=== PATIENT | female | born 1950 | race Caucasian/White ===

== ENCOUNTER → 2023-11-30 06:52 | Outpatient (REF) | payer MEDICARE, OTHER, SELFPAY ==
[2023-11-30] VITALS (7 sets, daily range): BP systolic 64–132; BP diastolic 57–81
[2023-11-30 07:25] LABS: % Basophils 2.3 % (0-2); % Eosinophils 3.3 % (0-6); % Immature Granulocytes 0.8 % (0-0.5); % Lymphocytes 36.5 % (20.5-51.1); % Monocytes 11.5 % (1.7-9.3); % Neutrophils 45.6 % (42.2-75.2); Absolute Basophils 0.1 10^3/uL (0-0.2); Absolute Eosinophils 0.2 10^3/uL (0-0.7); Absolute Lymphocytes 1.8 10^3/uL (1.2-3.4); Absolute Monocytes 0.6 10^3/uL (0.1-0.6); Absolute Neutrophils 2.2 10^3/uL (1.4-6.5); Hematocrit 27.1 % (37.0-47.0); Hemoglobin 9.1 g/dL (12.0-16.0); Mean Corp Hgb Conc. 33.6 g/dL (33.0-37.0); Mean Corpuscular Volume 95.4 fL (81.0-99.0); Mean Platelet Volume 12.4 fL (7.4-10.4); Nucleated Red Blood Cells % 0 %; Platelet Count 321 10^3/uL (130-400); Red Blood Cell Count 2.84 10^6/uL (4.20-5.40); Red Cell Dist. Width 21.7 % (11.5-14.5); White Blood Cell Count 4.8 10^3/uL (4.8-10.8)
[2023-11-30 07:31] LABS: INR 1.11; PT 14.1 Sec (11.4-14.6)
[2023-11-30] MEDS: ATIVAN 0.5 MG IV (08:18)
[2023-11-30] MEDS: NSS (PRESERVATIVE FREE) 0.25 ML IV (08:18)
[2023-11-30] MEDS: FLUSH (NSS) 1 FLUSH IV (08:18)
== END ==
LOC: RADI 06:52
PROVIDERS: ATTENDING PHYSICIAN Internal Medicine Hematology & Oncology; FAMILY PHYSICIAN Family Medicine
DX: D64.9 Anemia, unspecified (principal); D68.8 Other specified coagulation defects
CPT/HCPCS: 88305; 88311; 88312; 36415; 38222; 77012; 85025; 85610; 88313

== ENCOUNTER → 2023-12-28 09:03 | Outpatient (REF) | payer MEDICARE, OTHER, SELFPAY | LOC: RAD 09:03 | PROVIDERS: ATTENDING PHYSICIAN Obstetrics & Gynecology; FAMILY PHYSICIAN Family Medicine | DX: Z78.0 Asymptomatic menopausal state (principal) | CPT/HCPCS: 77080 ==

== ENCOUNTER → 2024-01-19 09:10 | Outpatient (REF) | payer MEDICARE, OTHER, SELFPAY ==
[2024-01-19 10:46] LABS: % Basophils 1.7 % (0-2); % Eosinophils 2.9 % (0-6); % Immature Granulocytes 1.2 % (0-0.5); % Lymphocytes 28.5 % (20.5-51.1); % Monocytes 9.3 % (1.7-9.3); % Neutrophils 56.4 % (42.2-75.2); Absolute Basophils 0.1 10^3/uL (0-0.2); Absolute Eosinophils 0.1 10^3/uL (0-0.7); Absolute Immature Granulocytes 0.1 10^3/uL (0-0.05); Absolute Lymphocytes 1.2 10^3/uL (1.2-3.4); Absolute Monocytes 0.4 10^3/uL (0.1-0.6); Absolute Neutrophils 2.4 10^3/uL (1.4-6.5); Hematocrit 24.1 % (37.0-47.0); Hemoglobin 7.9 g/dL (12.0-16.0); Mean Corp Hgb Conc. 32.8 g/dL (33.0-37.0); Mean Corpuscular Hgb 33.8 pg (27.0-31.0); Mean Platelet Volume 12.8 fL (7.4-10.4); Nucleated Red Blood Cells % 0 %; Platelet Count 205 10^3/uL (130-400); Red Blood Cell Count 2.34 10^6/uL (4.20-5.40); White Blood Cell Count 4.2 10^3/uL (4.8-10.8)
[2024-01-19 10:51] LABS: Blood Urea Nitrogen 18 mg/dl (7-17); Iron 80 ug/dl (37-170)
[2024-01-19 11:01] LABS: Percent Saturation 36 % (20-50); Total Iron Binding Capacity 222 ug/dl (265-497)
[2024-01-19 11:27] LABS: Ferritin 98.6 ng/ml (11.1-264.0)
[2024-01-19 13:30] LABS: Anisocytosis 1+; Normal RBC Morphology No
[2024-01-19 13:31] LABS: Hypochromasia 1+; Macrocytosis 1+
== END ==
LOC: REG 09:10
PROVIDERS: ATTENDING PHYSICIAN Internal Medicine Hematology & Oncology; FAMILY PHYSICIAN Family Medicine
DX: C50.419 Malignant neoplasm of upper-outer quadrant of unspecified female breast (principal); R79.9 Abnormal finding of blood chemistry, unspecified; D64.9 Anemia, unspecified; R53.83 Other fatigue; E03.9 Hypothyroidism, unspecified; D53.9 Nutritional anemia, unspecified; L02.213 Cutaneous abscess of chest wall; D46.C Myelodysplastic syndrome with isolated del(5q) chromosomal abnormality
CPT/HCPCS: 36415; 82565; 82728; 83540; 83550; 84520; 85025

== ENCOUNTER 2024-02-17 09:25 | Outpatient (RCR) | payer MEDICARE, OTHER, SELFPAY ==
[2024-02-17] VITALS (8 sets, daily range): BP systolic 97–128; BP diastolic 40–55
[2024-02-17] MEDS: TYLENOL 650 MG PO (10:09)
== END 2024-03-04 23:59 | disposition home or self-care (01) ==
LOC: OID 09:25
PROVIDERS: ATTENDING PHYSICIAN Internal Medicine Hematology & Oncology; FAMILY PHYSICIAN Family Medicine
DX: C50.419 Malignant neoplasm of upper-outer quadrant of unspecified female breast (principal); D46.C Myelodysplastic syndrome with isolated del(5q) chromosomal abnormality; R79.0 Abnormal level of blood mineral
CPT/HCPCS: 36415; 36430; 86850; 86900; 86901; 86920; P9016

== ENCOUNTER → 2024-03-06 09:24 | Outpatient (REF) | payer MEDICARE, OTHER, SELFPAY | LOC: WDC 09:24 | PROVIDERS: ATTENDING PHYSICIAN Family Medicine | DX: N63.12 Unspecified lump in the right breast, upper inner quadrant (principal) | CPT/HCPCS: 76642; 77062; 77066 ==

== ENCOUNTER → 2024-03-09 09:33 | Outpatient (REF) | payer MEDICARE, OTHER, SELFPAY ==
[2024-03-09 10:36] LABS: Hematocrit 25.6 % (37.0-47.0); Mean Corp Hgb Conc. 31.3 g/dL (33.0-37.0); Mean Corpuscular Hgb 34.5 pg (27.0-31.0); Mean Corpuscular Volume 110.3 fL (81.0-99.0); Red Blood Cell Count 2.32 10^6/uL (4.20-5.40); Red Cell Dist. Width 23.7 % (11.5-14.5); White Blood Cell Count 3.1 10^3/uL (4.8-10.8)
[2024-03-09 10:40] LABS: % Basophils 7.6 % (0-2); % Eosinophils 12.4 % (0-6); % Immature Granulocytes 0.3 % (0-0.5); % Lymphocytes 45.2 % (20.5-51.1); % Monocytes 8.3 % (1.7-9.3); % Neutrophils 26.2 % (42.2-75.2); Absolute Basophils 0.2 10^3/uL (0-0.2); Absolute Eosinophils 0.4 10^3/uL (0-0.7); Absolute Lymphocytes 1.4 10^3/uL (1.2-3.4); Absolute Monocytes 0.3 10^3/uL (0.1-0.6); Absolute Neutrophils 0.8 10^3/uL (1.4-6.5); Nucleated Red Blood Cells % 0 %; Platelet Count 120 10^3/uL (130-400)
== END ==
LOC: REG 09:33
PROVIDERS: ATTENDING PHYSICIAN Internal Medicine Hematology & Oncology; FAMILY PHYSICIAN Family Medicine
DX: C50.419 Malignant neoplasm of upper-outer quadrant of unspecified female breast (principal); R79.9 Abnormal finding of blood chemistry, unspecified; D64.9 Anemia, unspecified; R53.83 Other fatigue; E03.9 Hypothyroidism, unspecified; D53.9 Nutritional anemia, unspecified; L02.213 Cutaneous abscess of chest wall; D46.C Myelodysplastic syndrome with isolated del(5q) chromosomal abnormality
CPT/HCPCS: 36415; 85025; 86850; 86860; 86870; 86880; 86900; 86901; 86902; 86920; 86922

== ENCOUNTER → 2024-03-09 15:30 | Outpatient (REF) | payer MEDICARE, OTHER, SELFPAY | LOC: RAD 15:30 | PROVIDERS: ATTENDING PHYSICIAN Nurse Practitioner Adult Health; FAMILY PHYSICIAN Family Medicine | DX: I82.812 Embolism and thrombosis of superficial veins of left lower extremity (principal); R22.42 Localized swelling, mass and lump, left lower limb; C50.419 Malignant neoplasm of upper-outer quadrant of unspecified female breast; R79.9 Abnormal finding of blood chemistry, unspecified; R53.83 Other fatigue; E03.9 Hypothyroidism, unspecified; D53.9 Nutritional anemia, unspecified; L02.213 Cutaneous abscess of chest wall; D46.C Myelodysplastic syndrome with isolated del(5q) chromosomal abnormality; R06.02 Shortness of breath | CPT/HCPCS: 36415; 85025; 93971 ==

== ENCOUNTER 2024-03-13 13:08 | Outpatient (RCR) | payer MEDICARE, OTHER, SELFPAY ==
[2024-03-10] MEDS: TYLENOL 650 MG PO (09:52)
[2024-03-10 09:56] VITALS: BP 127/61
--- NOTE | 2024-03-10 16:29 | PTCARENOTE ---
Pt arrived today for blood transfusion; however, the type and cross that was completed the day before was canceled and not run in the lab. Antibody identified which further delayed care and patient sent home without blood transfusion. New type and
cross sent for planned transfusion on Wednesday. Problem ID placed.
[2024-03-13 13:55] VITALS: BP 124/39
[2024-03-13 14:00] VITALS: BP 124/39
[2024-03-13 14:10] VITALS: BP 124/39
[2024-03-13 14:20] LABS: Blood Urea Nitrogen 14 mg/dl (7-17); Calcium 9.2 mg/dl (8.4-10.2); Carbon Dioxide 29 mmol/L (22-30); Chloride 105 mmol/L (98-107); Glucose 94 mg/dl (70-99); Potassium 3.9 mmol/L (3.5-5.1); Sodium 141 mmol/L (135-145); eGFR > 60.00
[2024-03-13 14:25] VITALS: BP 111/45
[2024-03-13] MEDS: TYLENOL 650 MG PO (14:26)
[2024-03-13 15:00] LABS: Hematocrit 25.2 % (37.0-47.0); Hemoglobin 7.8 g/dL (12.0-16.0); Mean Corpuscular Hgb 34.8 pg (27.0-31.0); Mean Corpuscular Volume 112.5 fL (81.0-99.0); Platelet Count 121 10^3/uL (130-400); Red Blood Cell Count 2.24 10^6/uL (4.20-5.40); Red Cell Dist. Width 22.2 % (11.5-14.5); White Blood Cell Count 2.9 10^3/uL (4.8-10.8)
[2024-03-13 15:01] LABS: Absolute Neutrophils -Man Diff 1.3 10^3/uL (1.4-6.5); Band Neutrophils 3 % (0-3); Eosinophils 12 % (0-6); Lymphocytes 38 % (20-51); Monocytes 3 % (2-9); Platelets Checked Yes; Segmented Neutrophils 43 % (42-75)
[2024-03-13 15:02] LABS: Anisocytosis 1+; Hypochromasia 1+; Normal RBC Morphology No; Ovalocytes 1+; Polychromasia 1+; Total Cells Counted 100
[2024-03-13 16:10] VITALS: BP 109/45
== END 2024-04-04 23:59 | disposition home or self-care (01) ==
LOC: OID 13:08
PROVIDERS: ATTENDING PHYSICIAN Internal Medicine Hematology & Oncology; FAMILY PHYSICIAN Family Medicine
DX: D46.C Myelodysplastic syndrome with isolated del(5q) chromosomal abnormality (principal); C50.419 Malignant neoplasm of upper-outer quadrant of unspecified female breast; R79.0 Abnormal level of blood mineral; Z17.1 Estrogen receptor negative status [ER-]
CPT/HCPCS: 36415; 36430; 80048; 85025; 86850; 86870; 86880; 86900; 86901; 86920; 86922; P9016

== ENCOUNTER → 2024-03-30 14:39 | Outpatient (REF) | payer MEDICARE, OTHER, SELFPAY ==
[2024-03-30 12:20] LABS: % Basophils 1.9 % (0-2); % Eosinophils 6.1 % (0-6); % Lymphocytes 48.1 % (20.5-51.1); % Monocytes 13.6 % (1.7-9.3); % Neutrophils 30.3 % (42.2-75.2); Absolute Basophils 0.1 10^3/uL (0-0.2); Absolute Eosinophils 0.2 10^3/uL (0-0.7); Absolute Lymphocytes 1.3 10^3/uL (1.2-3.4); Absolute Monocytes 0.4 10^3/uL (0.1-0.6); Hematocrit 31.2 % (37.0-47.0); Hemoglobin 9.7 g/dL (12.0-16.0); Mean Corp Hgb Conc. 31.1 g/dL (33.0-37.0); Mean Corpuscular Hgb 36.3 pg (27.0-31.0); Mean Corpuscular Volume 116.9 fL (81.0-99.0); Mean Platelet Volume 13.3 fL (7.4-10.4); Platelet Count 130 10^3/uL (130-400); Red Blood Cell Count 2.67 10^6/uL (4.20-5.40); Red Cell Dist. Width 17.6 % (11.5-14.5); White Blood Cell Count 2.6 10^3/uL (4.8-10.8)
[2024-03-30 12:27] LABS: Absolute Neutrophils 0.8 10^3/uL (1.4-6.5)
== END ==
LOC: OIDL 14:39
PROVIDERS: ATTENDING PHYSICIAN Nurse Practitioner Acute Care
DX: C50.419 Malignant neoplasm of upper-outer quadrant of unspecified female breast (principal)
CPT/HCPCS: 85025

== ENCOUNTER → 2024-05-29 10:21 | Outpatient (REF) | payer MEDICARE, OTHER, SELFPAY | LOC: HWRCS 10:21 | PROVIDERS: ATTENDING PHYSICIAN Internal Medicine Cardiovascular Disease; FAMILY PHYSICIAN Family Medicine | DX: R00.1 Bradycardia, unspecified (principal); R53.83 Other fatigue; R06.09 Other forms of dyspnea | CPT/HCPCS: 93306 ==

== ENCOUNTER 2024-06-02 19:33 | Emergency (ER) | payer MEDICARE, OTHER, SELFPAY ==
[2024-06-02 19:37] VITALS: BP 129/81
[2024-06-02 19:45] VITALS: BP 141/76
[2024-06-02 20:28] LABS: COVID-19 Antigen Negative (Negative)
[2024-06-02 20:38] LABS: NT-proBNP 715 pg/ml
[2024-06-02 20:40] LABS: % Eosinophils 0.5 % (0-6); % Immature Granulocytes 0.5 % (0-0.5); % Lymphocytes 35.6 % (20.5-51.1); % Monocytes 9.2 % (1.7-9.3); % Neutrophils 52.2 % (42.2-75.2); Absolute Basophils 0.1 10^3/uL (0-0.2); Absolute Lymphocytes 1.4 10^3/uL (1.2-3.4); Absolute Monocytes 0.4 10^3/uL (0.1-0.6); Absolute Neutrophils 2.1 10^3/uL (1.4-6.5); Hematocrit 36.7 % (37.0-47.0); Hemoglobin 12.4 g/dL (12.0-16.0); Mean Corp Hgb Conc. 33.8 g/dL (33.0-37.0); Mean Corpuscular Hgb 32.5 pg (27.0-31.0); Mean Corpuscular Volume 96.3 fL (81.0-99.0); Nucleated Red Blood Cells % 0 %; Platelet Count 82 10^3/uL (130-400); Red Blood Cell Count 3.81 10^6/uL (4.20-5.40); Red Cell Dist. Width 14.7 % (11.5-14.5)
[2024-06-02 20:50] LABS: ALT (SGPT) 29 U/L (0-35); AST (SGOT) 28 U/L (14-36); Albumin 4.3 g/dl (3.5-5.0); Alkaline Phosphatase 100 U/L (38-126); Blood Urea Nitrogen 11 mg/dl (7-17); Calcium 9.6 mg/dl (8.4-10.2); Carbon Dioxide 27 mmol/L (22-30); Chloride 100 mmol/L (98-107); Glucose 121 mg/dl (70-99); Potassium 3.2 mmol/L (3.5-5.1); Sodium 138 mmol/L (135-145); eGFR > 60.00
[2024-06-03 00:29] VITALS: BP 116/56
--- NOTE | 2024-06-03 00:34 | ED.GENMED ---
History of Present Illness
General
Chief Complaint: Breathing Problem
Source: patient
Exam Limitations: none
Time Seen by Provider: 06/03/24 00:23
History of Present Illness
History of Present Illness:
This is a 74-year-old female presents with persistent cough. Symptoms began about a week ago. Patient has been on azithromycin by her PCP. Patient denies fevers but states that she just gets into coughing spells. No pleuritic pain. No leg
swelling. No hemoptysis.
Past History
Past History
ED Past Medical History: Cancer (Breast cancer 2007), HTN, Hypothyroidism, Other (Kidney stones, UTI) and Other (HTN, hypothyroid, breast CA, chemotherapy and radiation, kidney stones, B/L elbow fractures.)
ED Past Surgical History: Cholecystectomy, , Urological (Transurethral stone removal, left kidney nephrostomy with removal of stone, many years ago at [facility] and Other (C-sections Kidney surgery Transurethral kidney stone
removal Gallbladder removal Right Breast Lumpectomy )
Social History
Tobacco: Non-smoker
Alcohol: None
Personal:
Living: with family
Employment: Employed ([employer])
Family History
Family History: Hypertension
Phy Exam
Physical Exam
Physical Exam:
CONSTITUTIONAL Patient alert and oriented to person, place and time. Well-appearing. Vital signs reviewed.
HEAD atraumatic, normocephalic.
EYES eyelids normal to inspection, Extraocular muscles intact, Conjunctiva normal, Sclera normal.
NECK normal range of motion, Trachea midline, no jugular venous distention.
RESPIRATORY CHEST No respiratory distress noted, Chest expansion equal, scattered wheezes bilaterally
ABDOMEN No distention.
BACK normal inspection, no obvious deformities
UPPER EXTREMITY range of motion normal, Motor strength normal, no cyanosis, no edema.
LOWER EXTREMITY range of motion normal, Motor strength normal, no cyanosis, no edema.
NEURO Speech normal, No focal motor deficits, Beltran coma scale 15, Memory normal, Cranial Nerves intact to screening exam.
SKIN skin warm, dry, and normal in color.
Scores
Heart Failure Risk
Heart Failure Risk Score: Not Applicable
Sepsis
Sepsis Screening
Sepsis Assessment: Sepsis Ruled Out
Sepsis Screen
Sepsis Screen: Sepsis Ruled Out
Date: 06/03/24
Time: 04:02
Course
Orders/Labs/Results
Orders:
Orders
06/02/24 20:00
COVID-19 Antigen Urgent
Source: Nasal Swab
Complete Blood Count/With Diff Urgent
Comprehensive Metabolic Panel Urgent
Lactic Acid Urgent
NT-proBNP Urgent
Influenza A+B Rapid Molecular Urgent
[place] Source: Nasal Swab
Specimen Description:
06/03/24 00:00
CR Chest - 2 Views Urgent
Reason For Exam: cough
06/03/24 00:33
Ipratropium/Albuterol Sulfate [Duoneb] 3 ml INH R NOW ONE
Ipratropium/Albuterol Sulfate [Duoneb] 3 ml INH R NOW STA
06/03/24 01:33
Ipratropium/Albuterol Sulfate [Duoneb] 3 ml .ROUTE .STK-MED ONE
Prednisone [Deltasone] 50 mg .ROUTE .STK-MED ONE
06/03/24 01:34
Ipratropium/Albuterol Sulfate [Duoneb] 3 ml INH R NOW ONE
Prednisone [Deltasone] 50 mg PO NOW STA
06/03/24 02:16
Albuterol Nebs [Ventolin Nebules] 2.5 mg .ROUTE .STK-MED ONE
06/03/24 02:18
Albuterol Nebs [Ventolin Nebules] 2.5 mg INH R NOW STA
Abnormal Lab Results
06/02/24
20:00
WBC 4.0 L 10^3/uL
(4.8-10.8)
RBC 3.81 L 10^6/uL
(4.20-5.40)
Hct 36.7 L %
(37.0-47.0)
MCH 32.5 H pg
(27.0-31.0)
RDW 14.7 H %
(11.5-14.5)
Plt Count 82 L 10^3/uL
(130-400)
Potassium 3.2 L mmol/L
(3.5-5.1)
Glucose 121 H mg/dl
(70-99)
Total Bilirubin 2.0 H mg/dl
(0.2-1.3)
06/02/24 20:00
06/02/24 20:00
Vital Signs
Initial and Last Documented VS:
Initial Vital Signs
Temp Pulse Resp BP Pulse Ox
98.9 F 121 24 129/81 92
06/02/24 19:37 06/02/24 19:37 06/02/24 19:37 06/02/24 19:37 06/02/24 19:37
Last Documented Vital Signs
Temp Pulse Resp BP Pulse Ox
98.2 F 88 22 124/55 92
06/02/24 19:45 06/03/24 02:12 06/03/24 02:12 06/03/24 02:24 06/03/24 02:00
MDM/Problems Addressed
Differential Diagnosis Includes:
Pneumonia, pneumothorax, heart failure, bronchitis
MDM/Problems Addressed:
Acute bronchitis
*Radiology
Radiology exam reviewed: all reviewed NAD by ED Provider
*Pulse Oximetry
Patient hypoxic: no
*Adult Nurse Practitioner Interpretation
Rate: normal
Interpretation: normal
Rhythm: sinus
*Critical Care Note
Total Time (30-74mins, 75-104mins- exclusive of procedures): Not Applicable
Data Reviewed
Review of Other/Old Records Reveals: Testing (Echocardiogram reviewed from May 29. Ejection fraction 60 to 65%)
Source: patient and spouse
Prescriptions/Medications Considered But Not Given:
Considered antibiotics but already on azithromycin
Patient Management
Escalation/DeEscalation of care consider admission/obs:
Patient feels much better after breathing treatments. Will treat with a course of steroids. Patient will be discharged with a nebulizer machine and albuterol. Okay for outpatient follow-up with PCP
ED Attending Note
-
Portions of this chart may have been created with voice recognition software.� Occasional wrong word or��sound alike� substitutions may have occurred due to the inherent limitations of voice recognition software.
Discharge Plan
Departure
Patient Disposition: Home (Routine Discharge)
Date of Disposition: 06/03/24
Time of Disposition: 02:06
Patient with high blood pressure during this ER visit?: No
Discharge Problem:
RAD (reactive airway disease), Acute bronchitis
Instructions: Acute Bronchitis, Adult (DC)
Prescriptions:
New
prednisone 10 mg Tablet
See Rx Instructions .ROUTE .COMPLEX Qty: 45 0RF
Rx Instructions:
Take By Mouth:
50 mg daily x3 days, 40 mg daily x3 days,
30 mg daily x3 days, 20 mg daily x3 days,
10 mg daily x3 days
albuterol sulfate 1.25 mg/3 mL solution for nebulization
1.25 mg inhalation Q4H PRN (Reason: shortness of breath or wheezing) Qty: 90 0RF
No Action
cholecalciferol (vitamin D3) [Vitamin D3] 400 UNITS tablet
1,000 units PO DAILY
citalopram 20 MG tablet
20 mg PO DAILY
potassium citrate 10 MEQ tablet extended release
10 meq PO BID
levothyroxine 100 MCG tablet
150 mcg PO DAILY
multivitamin with folic acid [Tab-A-Hever] 1 TABLET tablet
1 tab PO DAILY
fluticasone propionate [Flovent HFA] 1 PUFF HFA aerosol inhaler
2 puff inhalation R BID
cyanocobalamin (vitamin B-12) [Vitamin B-12] 100 mcg Tablet
100 mcg PO DIRECTED
meloxicam 7.5 mg Tablet
7.5 mg PO DAILY
albuterol sulfate [ProAir HFA] 90 mcg/actuation Hfa Aerosol Inhaler
2 puff INHALATION QID PRN (Reason: SOB)
zinc
1 tab PO .EVERYOTHERDAY
Eliquis 5 mg Tablet
10 mg PO BID
Elderberry 200 mg Capsule
200 mg PO BID
lenalidomide 10 mg Capsule
10 mg PO DAILY
Referrals:
Kem Lopez, [Family Provider] -
Activity Restrictions/Additional Instructions:
Please see your doctor in the next 3 to 5 days for follow-up and reevaluation. Return immediately for coughing up blood, difficulty breathing, chest pain or any other concerns.
Interventions
Interventions:
*Risk Screen - Suicide Last Done: 06/03/24 00:32
*General Assessment Last Done: 06/02/24 19:45
*Neglect/Abuse Screening Last Done: 06/03/24 00:32
*ED COVID-19 Vaccine History Last Done: 06/03/24 00:32
*Nursing Disposition Last Done: 06/03/24 02:37
ED- Cardiac Assessment Last Done: 06/03/24 00:32
ED- Pulmonary Assessment Last Done: 06/03/24 00:32
Discharge Date and Time
Discharge Date/Time: 06/03/24 02:38
Print Language: MALDIVIAN
[2024-06-03] MEDS: DUONEB 3 ML INH ×3 (00:38→01:34)
[2024-06-03 00:58] VITALS: BMI 36.0
[2024-06-03 01:00] VITALS: BP 107/65
[2024-06-03] MEDS: DELTASONE 50 MG PO (01:34)
[2024-06-03 02:00] VITALS: BP 126/54
[2024-06-03] MEDS: VENTOLIN NEBULES 2.5 MG INH (02:18)
[2024-06-03 02:24] VITALS: BP 124/55
== END 2024-06-03 02:38 | disposition home or self-care (01) ==
LOC: EMR 19:33
PROVIDERS: Student in an Organized Health Care Education/Training Program; EMERGENCY PHYSICIAN Emergency Medicine; FAMILY PHYSICIAN Family Medicine
DX: J20.9 Acute bronchitis, unspecified (principal); J45.909 Unspecified asthma, uncomplicated; Z11.52 Encounter for screening for COVID-19
CPT/HCPCS: 99284; 71046; 80053; 83605; 83880; 85025; 87502; 87811

== ENCOUNTER → 2024-08-08 08:08 | Outpatient (REF) | payer MEDICARE, OTHER, SELFPAY | LOC: WDC 08:08 | PROVIDERS: ATTENDING PHYSICIAN Nurse Practitioner Adult Health; FAMILY PHYSICIAN Family Medicine | DX: R92.8 Other abnormal and inconclusive findings on diagnostic imaging of breast (principal) | CPT/HCPCS: 76642 ==

== ENCOUNTER 2025-01-16 20:39 | Inpatient (IN) | payer MEDICARE, OTHER, SELFPAY ==
[2025-01-16 13:40] VITALS: BP 124/69
[2025-01-16 14:03] VITALS: BP 97/62
--- NOTE | 2025-01-16 14:42 | ED.GENMED ---
History of Present Illness
<Tony Orozco PA-C - Last Filed: 01/16/25 17:24>
General
Chief Complaint: Abnormal Lab Value
Source: patient
Exam Limitations: none
Time Seen by Provider: 01/16/25 14:23
History of Present Illness
History of Present Illness:
74-year-old female on 2-1/2 mg of Eliquis twice a day also has a history of anemia presents after a fall she sustained a week ago. She fell forward onto her porch hitting her face and try to stop her fall with her hands. She notes increasing
swelling and bruising to the face and notes a mild headache. 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 Labs happened and demonstrated hemoglobin was low as well as her platelet count being 13,000. She denies any
dark stool. She denies any chest pain or shortness of breath. She denies any lightheadedness. No other complaints
Past History
<JULIANE Antoine Last Filed: 01/16/25 17:24>
Past History
ED Past Medical History: Cancer (Breast cancer 2007), HTN, Hypothyroidism, Other (Kidney stones, UTI) and Other (HTN, hypothyroid, breast CA, chemotherapy and radiation, kidney stones, B/L elbow fractures.)
ED Past Surgical History: Cholecystectomy, , Urological (Transurethral stone removal, left kidney nephrostomy with removal of stone, many years ago at [facility].) and Other (C-sections Kidney surgery Transurethral kidney stone
removal Gallbladder removal Right Breast Lumpectomy )
Social History
Tobacco: Non-smoker
Alcohol: None
Personal:
Living: with family
Employment: Employed ([employer])
Family History
Family History: Hypertension
Phy Exam
<JULIANE Antoine Last Filed: 01/16/25 17:24>
Physical Exam
Physical Exam:
General: Well-appearing female no acute distress
HEENT normal cephalic ecchymosis or swelling noted over the front of the face centered at the left superior eyebrow pupils equal round reactive to light heart: Regular rate and rhythm lungs: Clear no wheeze
Musculoskeletal exam: Spine is nontender the wrists are mildly diffusely tender dorsally bilaterally
Skin: Abrasions noted to both knees
Course
<Tony Orozco PA-C - Last Filed: 01/16/25 17:24>
Orders/Labs/Results
Orders:
Orders
01/16/25 14:37
CT Cervical Spine W/o Iv Contr Urgent
Comment:
Reason For Exam: fall
CT Facial Bones W/o Iv Contras Urgent
Comment:
Reason For Exam: fall
CR Wrist - Left Min 3 Views Urgent
Comment:
Reason For Exam: fall
CR Wrist - Right Min 3 Views Urgent
Comment:
Reason For Exam: fall
01/16/25 14:38
CT Head W/o Iv Contrast Urgent
Comment:
Reason For Exam: fall
01/16/25 15:10
CBC/With Diff [Complete Blood Count/With Diff] Urgent
CMP [Comprehensive Metabolic Panel] Urgent
Manual Differential Urgent
Abnormal Lab Results
01/16/25
15:10
WBC 2.4 L* 10^3/uL
(4.8-10.8)
RBC 2.71 L 10^6/uL
(4.20-5.40)
Hgb 8.5 L g/dL
(12.0-16.0)
Hct 25.4 L %
(37.0-47.0)
MCH 31.4 H pg
(27.0-31.0)
RDW 15.2 H %
(11.5-14.5)
Plt Count 11 L* 10^3/uL
(130-400)
Abs Neuts (Manual) 0.7 L* 10^3/uL
(1.4-6.5)
Segmented Neutrophils 30 L %
(42-75)
Lymphocytes (Manual) 52 H %
(20-51)
Monocytes (Manual) 18 H %
(2-9)
Glucose 101 H mg/dl
(70-99)
01/16/25 15:10
01/16/25 15:10
Vital Signs
Initial and Last Documented VS:
Initial Vital Signs
Temp Pulse Resp BP Pulse Ox
97.8 F 52 20 124/69 97
01/16/25 13:40 01/16/25 13:40 01/16/25 13:40 01/16/25 13:40 01/16/25 13:40
Last Documented Vital Signs
Temp Pulse Resp BP Pulse Ox
97.8 F 52 20 97/62 96
01/16/25 13:40 01/16/25 13:40 01/16/25 13:40 01/16/25 14:03 01/16/25 16:05
<Yousif Garcia, DO - Last Filed: 01/16/25 17:12>
Orders/Labs/Results
Orders:
Orders
01/16/25 14:37
CT Cervical Spine W/o Iv Contr Urgent
Comment:
Reason For Exam: fall
CT Facial Bones W/o Iv Contras Urgent
Comment:
Reason For Exam: fall
CR Wrist - Left Min 3 Views Urgent
Comment:
Reason For Exam: fall
CR Wrist - Right Min 3 Views Urgent
Comment:
Reason For Exam: fall
01/16/25 14:38
CT Head W/o Iv Contrast Urgent
Comment:
Reason For Exam: fall
01/16/25 15:10
CBC/With Diff [Complete Blood Count/With Diff] Urgent
CMP [Comprehensive Metabolic Panel] Urgent
Manual Differential Urgent
Abnormal Lab Results
01/16/25
15:10
WBC 2.4 L* 10^3/uL
(4.8-10.8)
RBC 2.71 L 10^6/uL
(4.20-5.40)
Hgb 8.5 L g/dL
(12.0-16.0)
Hct 25.4 L %
(37.0-47.0)
MCH 31.4 H pg
(27.0-31.0)
RDW 15.2 H %
(11.5-14.5)
Plt Count 11 L* 10^3/uL
(130-400)
Abs Neuts (Manual) 0.7 L* 10^3/uL
(1.4-6.5)
Segmented Neutrophils 30 L %
(42-75)
Lymphocytes (Manual) 52 H %
(20-51)
Monocytes (Manual) 18 H %
(2-9)
Glucose 101 H mg/dl
(70-99)
01/16/25 15:10
01/16/25 15:10
Vital Signs
Initial and Last Documented VS:
Initial Vital Signs
Temp Pulse Resp BP Pulse Ox
97.8 F 52 20 124/69 97
01/16/25 13:40 01/16/25 13:40 01/16/25 13:40 01/16/25 13:40 01/16/25 13:40
Last Documented Vital Signs
Temp Pulse Resp BP Pulse Ox
97.8 F 52 20 97/62 96
01/16/25 13:40 01/16/25 13:40 01/16/25 13:40 01/16/25 14:03 01/16/25 16:05
<Tony Orozco PA-C - Last Filed: 01/16/25 17:24>
MDM/Problems Addressed
Differential Diagnosis Includes:
Mechanical fall with head strike on [place] 1 week ago but recent outpatient labs demonstrated thrombocytopenia with a count of 13,000. Concern for bleeding. CT of the face head and cervical spine ordered. X-rays of both wrists ordered. Labs
pending
<Tony Orozco PA-C - Last Filed: 01/16/25 17:24>
*Pulse Oximetry
SaO2: 97
Oxygen Mode of Delivery: Room air
Patient hypoxic: no
*Critical Care Note
Total Time (30-74mins, 75-104mins- exclusive of procedures): Not Applicable
<Tony Orozco PA-C - Last Filed: 01/16/25 17:24>
Update Note
Update Note:
CT of the face head and cervical spine shows scalp hematoma but no intracranial hemorrhage or cervical spine fracture. X-rays of the wrist were personally visualized as well and are negative for acute fracture. I discussed with the emergency room
attending as well as oncology, Dr. Armstrong who recommended admission for inpatient bone marrow biopsy as there is concern she may be progressing into leukemia from her MDS.
ED Attending Note
<Tony Orozco PA-C - Last Filed: 01/16/25 17:24>
-
Portions of this chart may have been created with voice recognition software.� Occasional wrong word or��sound alike� substitutions may have occurred due to the inherent limitations of voice recognition software.
<Yousif Garcia DO - Last Filed: 01/16/25 17:12>
ED Attending Note
Patient seen and examined by attending physician: Yes
I performed the substantive portion of visit, reviewed & personally made and approve the management plan that is documented in note by myself or ZAIN.: Yes
ED Attending Note:
I evaluated the patient at bedside. Significant older appearing facial ecchymosis. She is pancytopenic. Hematology has been consulted recommends inpatient bone marrow biopsy as she may be progressing to leukemia.
Discharge Plan
Departure
Patient Disposition: Admit
Date of Disposition: 01/16/25
Time of Disposition: 17:24
Presentation/result/management discussed w/ accepting MD/DO: Hospitalist
Discharge Problem:
Pancytopenia
Prescriptions:
No Action
citalopram 20 MG tablet
10 mg PO BID
potassium citrate 10 MEQ tablet extended release
10 meq PO BID
multivitamin with folic acid [Tab-A-Hever] 1 TABLET tablet
1 tab PO DAILY
Eliquis 5 mg Tablet
2.5 mg PO BID
lenalidomide [Revlimid] 10 mg Capsule
10 mg PO QPM
levothyroxine [Synthroid] 175 mcg Tablet
175 mcg PO DAILY
acetaminophen [Tylenol Extra Strength] 500 mg Tablet
1,000 mg PO Q6HPRN PRN (Reason: mild pain)
cholestyramine 4 gram Powder
4 g PO BID
Referrals:
Kem Lopez DO [Family Provider, Family Practice]
Interventions
Interventions:
*Risk Screen - Suicide Last Done: 01/16/25 13:40
*General Assessment Last Done: 01/16/25 13:40
Discharge Date and Time
Print Language: TURKISH
--- NOTE | 2025-01-16 15:08 | PHANOTE ---
Addendum entered by Mayra De Jesus 01/16/25 15:19:
[facility] [place] does not have patient in system, patient stated she not sure which [facility] her
Original Note:
med re cnote waiting for the [facility] [place] to fax medication list over, to confirm ecw medication. patient answer to question i think so.
[2025-01-16 15:37] LABS: ALT (SGPT) 13 U/L (0-35); AST (SGOT) 16 U/L (14-36); Albumin 3.5 g/dl (3.5-5.0); Alkaline Phosphatase 92 U/L (38-126); Blood Urea Nitrogen 12 mg/dl (7-17); Calcium 9.0 mg/dl (8.4-10.2); Carbon Dioxide 29 mmol/L (22-30); Chloride 106 mmol/L (98-107); Glucose 101 mg/dl (70-99); Potassium 4.0 mmol/L (3.5-5.1); Sodium 136 mmol/L (135-145); Total Protein 7.2 g/dl (6.3-8.2); eGFR > 60.00
[2025-01-16 15:56] LABS: Hematocrit 25.4 % (37.0-47.0); Hemoglobin 8.5 g/dL (12.0-16.0); Mean Corp Hgb Conc. 33.5 g/dL (33.0-37.0); Mean Corpuscular Volume 93.7 fL (81.0-99.0); Platelet Count 11 10^3/uL (130-400); Red Cell Dist. Width 15.2 % (11.5-14.5)
[2025-01-16 16:35] LABS: Normal RBC Morphology Yes; Platelets Checked Yes
[2025-01-16 16:36] LABS: Absolute Neutrophils -Man Diff 0.7 10^3/uL (1.4-6.5); Total Cells Counted 100
--- NOTE | 2025-01-16 18:10 | HPS.HSE ---
Family Physician
-
Family Physician: Kem Lopez
Chief Complaint
-
abnormal out patient labs
History of Present Illness
Patient is a 74-year-old female with past medical history significant for MDS, hypothyroidism and depression who presented to [facility] ED for evaluation of abnormal out patient labs. Patient reports falling a week ago on Wednesday when missing the one
step to go into her home and fell face first into the concrete. Significant facial bruising is still present. She reports telling her daughter about fall today and she requested patient come for evaluation to be sure no bleeding with being on
Eliquis (daughter is INTERNATIONAL EDITORIAL PRODUCER in [place]). She also received a phone call from [facility] requesting her come to ED for admission for in patient bone marrow biopsy based on out patient lab results from yesterday. Patient denies any recent fever, chills,
cough, shortness of breath, chest pain, nausea, vomiting, constipation, diarrhea or urinary symptoms.
Medical History
Past Medical History
Past Medical History: Reports Other
Additional Past Medical History:
MDS
hypothyroidism
depression
Hx breast cancer
Past Surgical History: Reports Other
Additional Past Surgical History:
Kidney Surgery
section
Breast Lumpectomy rt 2006
Chemo and Radiation
Incisional herniorrhaphy with mesh 01/11/2015
Cholecystectomy
Fractured Ankle
rt breast exc. bx 2012 benign
left breast exc bx 2017 benign
tumor removed from head (2010)
colonoscopy 10 years ago
08/26/18 Excision of chronic hemorrhoidal tag dr Perez benign
Social History
Tobacco: Former Smoker (quit 40 years ago )
Alcohol: Occasional (rare)
Drug: None
Personal:
Living: With Family
Employment: Employed
Family History
Family History: Other (Father: CAD; Mother: CAD; Paternal aunt: breast cancer )
Allergies / Home Medications
Allergies reflects when Allergies were last updated in [facility].
Home Medications with original date entered in [facility]
Allergy/Medication List:
Allergies
Allergy/AdvReac Type Severity Reaction Status Date / Time
hydromorphone HCl (From AdvReac bp drops Verified 01/16/25 13:41
Dilaudid)
ondansetron HCl (From Zofran) AdvReac headache Verified 01/16/25 13:41
kenalog injection Allergy headache Uncoded 01/16/25 13:41
Home Medications
citalopram 20 mg tablet 10 mg PO BID Mental Health/Anxiety 05/20/13
potassium citrate 10 mEq (1,080 mg) tablet,extended release 10 meq PO BID Supplement 05/20/13
multivitamin with folic acid 400 mcg tablet (Tab-A-Hever) 1 tab PO DAILY Supplement 03/15/20
apixaban 5 mg tablet (Eliquis) 2.5 mg PO BID afib 03/10/24
lenalidomide 10 mg capsule (Revlimid) 10 mg PO QPM 03/13/24
acetaminophen 500 mg tablet (Tylenol Extra Strength) 1,000 mg PO Q6HPRN PRN mild pain 01/16/25
cholestyramine 4 gram oral powder 4 g PO BID diarrhea 01/16/25
levothyroxine 175 mcg tablet (Synthroid) 175 mcg PO DAILY Thyroid 01/16/25
Review of Systems
-
History Source: Patient
Constitutional: Denies Fever or Chills
EENT: Reports Other (significant bruising to face ); Denies Sore Throat
Respiratory: Denies Cough, Hemoptysis or Trouble Breathing
Cardiac: Denies Chest Pain, Diaphoresis, Palpitations or Syncope
Abdomen/GI: Denies Abdominal Pain, Nausea, Vomiting or Diarrhea
: Denies Dysuria, Frequency or Urgency
Musculoskeletal: Denies Joint Pain
Skin: Denies Rash
Neurological: Denies Dizzy, Headache, Weakness or Numbness
Endocrine: Denies Polyuria
Hematologic/Lymphatic: Denies Bleeding
Physical Exam
Vital Signs
Vital Signs
Temp Pulse Resp BP Pulse Ox
97.8 F 52 20 97/62 96
01/16/25 13:40 01/16/25 13:40 01/16/25 13:40 01/16/25 14:03 01/16/25 16:05
Physical Exam
General: Well Developed, Well Nourished, No Apparent Distress, Comfortable, Conversant and Obese
HEENT: NormoCephalic, Moist mucous membranes, PERRLA, Nose Appears Normal, Ears Appear Normal and Other (significant facial bruising )
Respiratory: Clear and Non Labored Respirations; No Wheezes, Rales, Rhonchi or Crackles
Cardiac: S1/S2 and Regular Rhythm; No Murmur, Rub or Gallop
GI: Soft, Non Tender, Non Distended and Normal Bowel Sounds
Musculoskeletal: No Clubbing, No Cyanosis and No Edema
Skin: Warm and IV/Catheter Site
Neuro: Awake and AO x 3
Hematologic/Lymphatic: No Lymphadenopathy
Psych: Calm and Intact Judgment/Insight
Laboratory Results
-
01/16/25 15:10
01/16/25 15:10
Laboratory Results
Total Bilirubin 0.7 mg/dl (0.2-1.3) 01/16/25 15:10
AST 16 U/L (14-36) 01/16/25 15:10
ALT 13 U/L (0-35) 01/16/25 15:10
Alkaline Phosphatase 92 U/L (38-126) 01/16/25 15:10
Data Reviewed
-
Diagnostic Radiology: Report Reviewed by me (r wrist: 1. Acute nondisplaced fracture of the dorsal cortex of the triquetrum with mild overlying soft tissue swelling. 2. 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 3. 2.6 mm
negative ulnar variance.; l wrist: No radiographic evidence for acute fracture in the left wrist. )
CT Scan: Report Reviewed by me
Lab Data: Labs Reviewed by me (WBC 2.4, hgb 8.5, hct 25.4, plt 11)
Impression/Plan
-
IMPRESSION/PLAN:
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
WBC 2.4, hgb 8.5, hct 25.4, plt 11
- Admit to med/surg
- Consult Hematology/Oncology
- hold Eliquis, Last dose 01/16/2025 AM
- blood consent obtained and scanned to chart
#MDS
- Hold Eliquis (last dose 01/16/2025 AM) and Revlimid (last dose 01/15/2025 PM)
#mechanical fall
#right wrist fracture
C-spine CT: 1. 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
2. Mild spinal cord compression and central canal stenosis at C3/C4, C4/C5, C5/C6, and C6/C7.
3. Severe bilateral neural foraminal narrowing at C4/C5 and C5/C6.
4. Severe left neural foraminal narrowing at C6/C7.
HEAD CT: 1. 2.1 cm ACUTE SCALP SOFT TISSUE HEMATOMA anterior to the left frontal bone.
2. No CT evidence for acute intracranial hemorrhage or calvarial fracture.
3. 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
4. Mild encephalomalacia in the peripheral right cerebellar hemisphere.
5. Mild periventricular white matter leukoaraiosis.
FACIAL BONES CT: 1. No CT evidence for acute facial bone fracture.
2. Moderate to severe calcific atherosclerotic plaque in the left carotid bifurcation and proximal left ICA.
Left wrist x-ray: No radiographic evidence for acute fracture in the left wrist.
Right wrist x-ray: 1. Acute nondisplaced fracture of the dorsal cortex of the triquetrum with mild overlying soft tissue swelling.
2. 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
3. 2.6 mm negative ulnar variance.
- Consult Orthopedics
- splinted in ED
#hypothyroidism
- continue levothyroxine
#depression
- continue citalopram
Code status: full code
DVT prophylaxis: SCDs
--- NOTE | 2025-01-16 19:42 | W.PN.UPDATE ---
Update Note
Progress Note Update
This note serves as an addendum to the H&P by tax audit manager ZAIN�
Niyah Orozco
HPI
74M Former smoker, HX MDS (Revlimid and Eliquis ) hypothyroidism and depression seen at ER:
- for evaluation of abnormal out patient labs - [facility] sent her in for admission for BM Biospy
- Mechanical Fall on Wednesday when missing the one step - fell face first into the concrete.
- with significant facial bruising is still present.
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
ROS:
denies any recent fever, chills, cough, shortness of breath, chest pain, nausea, vomiting, constipation, diarrhea or urinary symptoms.
Relevant VS
Temp Pulse Resp BP Pulse Ox
97.8 F 52 20 97/62 96
01/16/25 13:40 01/16/25 13:40 01/16/25 13:40 01/16/25 14:03 01/16/25 16:05
PE
General: Obese , NAD , interactive
HEENT: significant facial bruising
Resp: CTA
Cardiac: S1/S2 and RRR
GI: Soft, Non Tender, Non Distended
MS: No Edema
Neuro: Awake and AO x 3
Psych: Calm and Intact Judgment/Insight
Relevant data�
06/02/24 01/16/25
20:00 15:10
WBC 4.0 L 2.4 L*
Hgb 12.4 8.5 L
Plt Count 82 L 11 L*
Abs Neuts (Manual) 0.7 L*
Segmented Neutrophils 30 L
Band Neutrophils 0
Lymphocytes (Manual) 52 H
Monocytes (Manual) 18 H
C-spine CT:
1. 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
2. Mild spinal cord compression and central canal stenosis at C3/C4, C4/C5, C5/C6, and C6/C7.
3. Severe bilateral neural foraminal narrowing at C4/C5 and C5/C6.
4. Severe left neural foraminal narrowing at C6/C7.
HEAD CT:
1. 2.1 cm ACUTE SCALP SOFT TISSUE HEMATOMA anterior to the left frontal bone.
2. No CT evidence for acute intracranial hemorrhage or calvarial fracture.
3. 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
4. Mild encephalomalacia in the peripheral right cerebellar hemisphere.
5. Mild periventricular white matter leukoaraiosis.
FACIAL BONES CT:
1. No CT evidence for acute facial bone fracture.
2. Moderate to severe calcific atherosclerotic plaque in the left carotid bifurcation and proximal left ICA.
Left wrist x-ray: No radiographic evidence for acute fracture in the left wrist.
Right wrist x-ray:
1. Acute nondisplaced fracture of the dorsal cortex of the triquetrum with mild overlying soft tissue swelling.
2. 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
3. 2.6 mm negative ulnar variance.
NO PRIOR Last hospitalist admission:
ASSESSMENT & PLAN
Worsening pancytopenia: severe thrombocytopenia
New segmented Neutrophils, Lymphocytosis and monocytosis concerning Leukemic transformation
HX MDS
- Hold Eliquis
- For BM Biopsy
- T & S, Blood consented and scanned at ER
- Oncology consulted
HX MDS
- Hold Eliquis and Revlimid
Right wrist acute nondisplaced fracture of the dorsal cortex of the triquetrum
Recent fall with significant facial bruises
- wrist splint
- Ortho consult
Hypothyroidism
- on LT4
Depression
- c/w citalopram
DVT Px: SCD
Full code
IP MS
[2025-01-16 21:24] VITALS: BP 114/47; BMI 34.9
[2025-01-16] MEDS: CELEXA PO (22:05)
--- NOTE | 2025-01-16 22:47 | PTCARENOTE ---
Pt received from ED via stretcher. Ambulated to bed w/supervision. AAOx3, pleasant. Oriented to surroundings and plan of care discussed. Admission and physical assessment completed. Periorbital and facial cchymosis present. Pt received w/brace
to L wrist, contacted admitting provided via TT for clarification as to which wrist brace should be on. COAL MILL OPERATOR confirmed that brace should be applied to R wrist. Explained to pt and pt agreeable to move wrist to R. Instructed ro ring for assist
when getting OOB, pt verbalizes understanding. Boxed lunch provided. Call sultana w/in reach.
[2025-01-16] MEDS: UROCIT-K 10 MEQ PO (22:52)
[2025-01-16 23:20] VITALS: PULSE 89
[2025-01-17] VITALS (10 sets, daily range): BP systolic 111–121; BP diastolic 46–63; BMI 34.9
--- NOTE | 2025-01-17 00:30 | PTCARENOTE ---
TT to RT that patient cannot tolerate CPAP mask.
[2025-01-17] MEDS: TYLENOL 650 MG PO (01:31)
[2025-01-17] MEDS: SYNTHROID 175 MCG PO (07:26)
[2025-01-17 07:32] LABS: Hematocrit 22.9 % (37.0-47.0); Hemoglobin 7.6 g/dL (12.0-16.0); Mean Corp Hgb Conc. 33.2 g/dL (33.0-37.0); Mean Corpuscular Volume 95.8 fL (81.0-99.0); Platelet Count 9 10^3/uL (130-400); Red Cell Dist. Width 15.2 % (11.5-14.5)
[2025-01-17 07:43] LABS: Blood Urea Nitrogen 11 mg/dl (7-17); Calcium 8.7 mg/dl (8.4-10.2); Carbon Dioxide 26 mmol/L (22-30); Chloride 108 mmol/L (98-107); Estimated Creatinine Clearance 100 ml/min; Glucose 88 mg/dl (70-99); Potassium 3.4 mmol/L (3.5-5.1); Sodium 138 mmol/L (135-145); eGFR > 60.00
--- NOTE | 2025-01-17 08:10 | CON.ORTHO ---
Consultation
-
Date/Time Consultation Requested: 01/16/2025; time unknown
Date/Time Consultation Performed: 01/17/2025; 0700
Requesting Provider: unknown
Performing Provider: Shanta Waters PA-C for Dr. Maxwell Lema
Reason for Consultation: Right wrist triquetrum fracture
Consultation - Orthopedics
History
Ms. Nielsen is a 74 year old female with PMH of MDS, hypothyroidism and depression seen today for her right wrist. She reports she sustained a fall about one week ago, and her daughter requested she been seen to rule out any abnormal bleeding due to
being on Eliquis. She also presented at the request of [facility] due to abnormal outpatient labs. She reports her right wrist has been tender since the fall. She localizes pain primarily to the dorsal aspect of her hand. She also endorses some pain
along the radial aspect of her left thumb and wrist. She otherwise denies pain elsewhere.
Allergies / Home Medications
Allergy/AdvReac Type Severity Reaction Status Date / Time
hydromorphone HCl (From AdvReac bp drops Verified 01/16/25 13:41
Dilaudid)
ondansetron HCl (From Zofran) AdvReac headache Verified 01/16/25 13:41
kenalog injection Allergy headache Uncoded 01/16/25 13:41
�Medication �Instructions �Recorded
citalopram 20 mg tablet 20 mg PO DAILY Mental 05/20/13
Health/Anxiety
potassium citrate 10 mEq (1,080 10 meq PO BID Supplement 05/20/13
mg) tablet,extended release
multivitamin with folic acid 400 1 tab PO DAILY Supplement 03/15/20
mcg tablet (Tab-A-Hever)
apixaban 5 mg tablet (Eliquis) 2.5 mg PO BID afib 03/10/24
lenalidomide 10 mg capsule 10 mg PO QPM Autoimmune Disorder 03/13/24
(Revlimid)
acetaminophen 500 mg tablet 1,000 mg PO Q6HPRN PRN mild pain 01/16/25
(Tylenol Extra Strength)
cholestyramine 4 gram oral powder 4 g PO BID diarrhea 01/16/25
levothyroxine 175 mcg tablet 175 mcg PO DAILY Thyroid 01/16/25
(Synthroid)
Vital Signs / Lab Results
Temp Pulse Resp BP Pulse Ox
97.9 F 67 18 111/63 95
01/17/25 07:24 01/17/25 07:24 01/17/25 07:24 01/17/25 07:24 01/17/25 07:24
01/17/25 06:27
01/17/25 06:27
XR Right Wrist IMPRESSION:
1. Acute nondisplaced fracture of the dorsal cortex of the triquetrum with mild overlying soft tissue swelling.
2. 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
3. 2.6 mm negative ulnar variance.
XR of left wrist unremarkable.
Directed exam of the right upper extremity reveals mild edema about the dorsal aspect of the hand. No significant erythema, ecchymosis or lesions. Tenderness to palpation over the triquetrum and DRUJ. Patient able to make composite fist and fully
extend fingers. Mild discomfort with wrist ROM. Sensation intact to light touch. Capillary refill <2 seconds.
Directed exam of the left hand reveals no obvious erythema, ecchymosis, edema or lesions. No significant tenderness throughout the hand. Patient able to make composite fist and fully extend fingers. Maintained wrist ROM. NVID.
Assessment / Plan
Nondisplaced fracture of right triquetrum
--Claudia's x-rays were reviewed with her today which reveal a nondisplaced fracture of her triquetrum. This can be managed without surgical intervention. She will continue with immobilization and soft tissue rest in her wrist brace. She will
utilize this at all times other than for showering. She should limit weight bearing to her right upper extremity where possible. I recommended ice, elevation and OTC medications for symptom management. We will see her back in the office in 2 weeks
for repeat evaluation and new x-rays. Orthopedics will sign off for now. Please reach out with any additional orthopedic questions or concerns.
[2025-01-17] MEDS: CELEXA 10 MG PO ×2 (08:54→21:48)
[2025-01-17] MEDS: UROCIT-K 10 MEQ PO ×2 (08:55→21:48)
[2025-01-17] MEDS: THERAGRAN 1 TABLET PO (08:55)
[2025-01-17] MEDS: QUESTRAN 4 GRAM PO ×2 (09:45→21:48)
--- NOTE | 2025-01-17 10:47 | W.PN.HOSP.TC ---
Today's Communication/Plan
-
2 units Platelets for plt<10
monitor CBC closely
Heme following for possible BM biopsy
Ortho saw pt, no acute surgical intervention
Assessment / Plan
Assessment / Plan
74F with history of triple negative breast cancer s/p chemo and surgery, MDS 5 q-on lenalidomide with panytopenia on labs.
Severe thrombocytopenia
Pancytopenia
MDS with New segmented Neutrophils, Lymphocytosis and monocytosis concerning Leukemic transformation
- Hold Eliquis
- For BM Biopsy inpatient
Transfuse PRBC if Hgb < 7
Transfuse platelet if plt < 10 or any bleeding
- Oncology consulted, appreciate recommendation. Likely chemo once leukemia has been identified.
MDS 5q-
- Hold Eliquis and Revlimid
Right wrist acute nondisplaced fracture
of the dorsal cortex of the triquetrum
Recent fall with significant facial bruises
- wrist splint
- Ortho consult, recommend nonoperative management with ice elevation and pain medicine
Hypothyroidism
Synthroid
Depression
- c/w citalopram
DVT Px: SCD
Full code
Anticipated Discharge: > 48 hours
Subjective/Interval History
-
Date of Service: January 17, 2025
Feels well. Chronic diarrhea due to lenalidomide, nonbloody. Briefly had ROMAN last night, resolved. No blurred vision, bruising on her face from fall is unchanged. No bleeding or new bruising. No CP, SOB, n/v/abd pain, f/c. No hematuria.
Objective Data
-
Labs:
Laboratory Results
01/17/25
06:27
WBC 2.1 L*
Hgb 7.6 L
Hct 22.9 L
Plt Count 9 L*
Sodium 138
Potassium 3.4 L
Chloride 108 H
Carbon Dioxide 26
BUN 11
Creatinine 0.6
Glucose 88
Calcium 8.7
Vital Signs:
Vital Signs
Temp Pulse Resp BP Pulse Ox
98.2 F 69 16 121/48 95
01/17/25 10:19 01/17/25 10:19 01/17/25 10:19 01/17/25 10:19 01/17/25 07:24
I&O
01/16/25 01/17/25 01/18/25
06:59 06:59 06:59
Intake Total 0 / 0
Balance 0 / 0
Review of Systems
-
All other systems: Reviewed and negative
Physical Exam
-
General: No Apparent Distress
HEENT: Moist Mucous Membranes, Anicteric and PERRLA
Respiratory: Clear to Auscultation; Negative Wheezes, Rales or Rhonchi
Cardiac: Regular Rhythm, S1/S2 and Murmur; Negative Rub or Gallop
GI: Soft, Nontender, Nondistended and Normal Bowel Sounds
Musculoskeletal: No Edema and Other (R arm in splint)
Skin: Warm, Dry and Other (bruising on face); Negative Rash or Ulcers
Neuro: Awake and AO x 3
Hematologic / Lymphatic: No Lymphadenopathy
Psych: Calm
Data Reviewed
-
CT Scan: Report Reviewed by me and Discussed with Patient
Labs: Labs Reviewed by me, Discussed with Physician and Discussed with Patient
--- NOTE | 2025-01-17 12:35 | CON.ONC ---
Consultation
-
Date Consultation Requested: 01/16/25
Date Consultation Performed: 01/17/25
Requesting Provider: KAYE Orozco
Performing Provider: Dr. Dom Ham and Dr. Art Curry
Reason for Consultation: acute thromboctypenia/ abnormal outpatient results
Impression
Impression
#5q- Myelodysplastic syndrome
#Blasts on peripheral blood smear
Plan
Plan
- 74-year-old female with a past medical history of 5q-myelodysplastic syndrome and remote triple negative breast cancer (treated with adjuvant chemotherapy in 2010) presenting with acute drop in platelet count in a span of a month (from 122 --> 13
--> 9) and increasing peripheral blasts (3%).
- Inpatient peripheral smear shows 18% monocytes and 52% lymphocytes.
- There is concern for progression of MDS to leukemia. Will place inpatient bone biopsy order, approved by SENIOR LANDSCAPE ARCHITECT. Will await bone marrow biopsy results for diagnostic confirmation.
- Will order flow cytometry.
- No active bleeding, received 2 unit platelets today. Monitor for response (trend CBC). Further transfusions may increase alloimmunization risk.
- HOLD ELIQUIS
- Patient follows with Dr. Capone at [facility].
Patient History
History of Present Illness
Patient is a 74-year-old female with past medical history of myelodysplastic syndrome (on Revlimid since 02/01/24), hypothyroidism and triple negative breast cancer who presented to the ED for abnormal labs. Patient was instructed by [facility] to go
to the ED for an inpatient bone marrow biopsy based on results from 01/15/2025 which showed platelet count of 13, absolute blasts 94, blast 3%. Patient expresses that she has been fatigued for the past 2 weeks, and had a fall 1 week ago. She has
extensive bruising to her face that she landed on concrete face down. Patient did not get evaluated at the time of the fall. Patient denies fever, chills, and abdominal pain, or any other symptoms. Patient follows with Dr. Capone at
[facility].
Past-Medical/Surgical History
Triple negative breast cancer treated with adjuvant AC-T in 2010
5q-myelodysplastic syndrome
Depression
Hypothyroidism
Patient Medication
�Medication �Instructions �Recorded �Confirmed �Last Taken �Type
citalopram 20 mg tablet 20 mg PO DAILY Mental 05/20/13 01/17/25 01/16/25 History
Health/Anxiety
potassium citrate 10 mEq (1,080 10 meq PO BID Supplement 05/20/13 01/16/25 01/16/25 History
mg) tablet,extended release
multivitamin with folic acid 400 1 tab PO DAILY Supplement 03/15/20 01/16/25 03/13/24 History
mcg tablet (Tab-A-Hever)
apixaban 5 mg tablet (Eliquis) 2.5 mg PO BID afib 03/10/24 01/16/25 01/16/25 History
lenalidomide 10 mg capsule 10 mg PO QPM Autoimmune Disorder 03/13/24 01/16/25 01/15/25 History
(Revlimid)
acetaminophen 500 mg tablet 1,000 mg PO Q6HPRN PRN mild pain 01/16/25 01/16/25 01/15/25 History
(Tylenol Extra Strength)
cholestyramine 4 gram oral powder 4 g PO BID diarrhea 01/16/25 01/16/25 01/16/25 History
levothyroxine 175 mcg tablet 175 mcg PO DAILY Thyroid 01/16/25 01/16/25 01/16/25 History
(Synthroid)
Active Medications
Generic Name Dose Route Start Last Admin
Trade Name Freq PRN Reason Stop Dose Admin
Acetaminophen 650 mg 01/16/25 21:03 01/17/25 01:31
Acetaminophen 325 Mg Tablet PO 02/13/25 21:02 650 mg
Q4HPRN PRN Administration
mild pain/ROMAN/temp> 100.4F
Cholestyramine Resin 4 gram 10/15/25 10:00 01/17/25 09:45
Cholestyramine 4 Gram Packet PO 02/14/25 09:59 4 gram
BID@1000,2200 KARTHIKEYAN Administration
Citalopram Hydrobromide 10 mg 01/16/25 21:03 01/17/25 08:54
Citalopram 20 Mg Tablet PO 02/13/25 21:02 10 mg
BID KARTHIKEYAN Administration
Levothyroxine Sodium 175 mcg 01/17/25 06:00 01/17/25 07:26
Levothyroxine 175 Mcg Tablet PO 02/14/25 05:59 175 mcg
DAILY @ 0600 KARTHIKEYAN Administration
Multivitamins Therapeutic 1 tablet 01/17/25 08:00 01/17/25 08:55
Multivitamin Tablet PO 02/14/25 07:59 1 tablet
DAILY KARTHIKEYAN Administration
Potassium Citrate 10 meq 01/16/25 21:03 01/17/25 08:55
Potassium Citrate 10 Meq Tablet PO 02/13/25 21:02 10 meq
BID KARTHIKEYAN Administration
Sodium Chloride 0 flush 01/16/25 22:00
Sodium Chloride 0.9% (Flush) Syringe IV 02/13/25 21:59
PER PROTOCOL KARTHIKEYAN
Review of Systems
-
History Source: Patient
All Other Systems: Reviewed and Negative
Constitutional: Reports Fatigue
EENT: Reports No Symptoms
Respiratory: Reports No Symptoms
Cardiac: Reports No Symptoms
GI: Reports No Symptoms
Breast: Reports No Symptoms
: Reports No Symptoms
Neuro: Reports No Symptoms
Endocrine: Reports No Symptoms
Hematologic/Lymphatic: Reports Bruising
Psych: Reports No Symptoms
Physical Exam
-
General: Well Developed, Well Nourished, No Apparent Distress, Comfortable and Conversant
HEENT: Moist Mucous Membranes
Cardiology: Normal Sinus Rhythm, S1 and S2
Pulmonary: Clear
GI: Soft and Normal Bowel Sounds
Musculoskeletal: No Clubbing, No Cyanosis and No Edema
Skin: Warm
Psych: Calm
Labs
Lab Results
WBC 2.1 10^3/uL (4.8-10.8) L* 01/17/25 06:27
RBC 2.39 10^6/uL (4.20-5.40) L 01/17/25 06:27
Hgb 7.6 g/dL (12.0-16.0) L 01/17/25 06:27
Hct 22.9 % (37.0-47.0) L 01/17/25 06:27
MCV 95.8 fL (81.0-99.0) 01/17/25 06:27
MCH 31.8 pg (27.0-31.0) H 01/17/25 06:27
MCHC 33.2 g/dL (33.0-37.0) 01/17/25 06:27
RDW 15.2 % (11.5-14.5) H 01/17/25 06:27
Plt Count 9 10^3/uL (130-400) L* 01/17/25 06:27
MPV Not Reportable 01/17/25 06:27
Creatinine 0.6 mg/dL (0.6-1.0) 01/17/25 06:27
Vital Signs
Vital Signs
Temp Pulse Resp BP Pulse Ox
98.1 F 67 16 113/46 99
01/17/25 12:15 01/17/25 12:15 01/17/25 12:15 01/17/25 12:15 01/17/25 11:54
--- NOTE | 2025-01-17 13:10 | CM ---
CM following re: discharge planning.
Reviewed pt's chart, met with pt.
Pt is a 74 year old female, admitted with primary dx of Nondisplaced fracture of right triquetrum. PMH: MDS, hypothyroidism and depression.
Pt reports she lives with in a rancher house, 1 step to enter, has 2 supportive children. 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 No DME, VN or SNF history.
PT and OT will evaluate the pt to determine a level of care at discharge.
PCP: Kem brumfield
pharmacy: [facility]
D/C plan: home with anticipated no needs. to transport at discharge.
CM will follow with discharge plan updates as hospitalization progresses
[2025-01-18] MEDS: SYNTHROID 175 MCG PO (05:46)
[2025-01-18 05:52] VITALS: BMI 35.1
[2025-01-18 06:33] LABS: INR 1.22; PT 15.9 Sec (11.4-14.6)
[2025-01-18 06:36] LABS: Hematocrit 24.8 % (37.0-47.0); Hemoglobin 8.0 g/dL (12.0-16.0); Mean Corp Hgb Conc. 32.3 g/dL (33.0-37.0); Mean Corpuscular Volume 95.8 fL (81.0-99.0); Platelet Count 16 10^3/uL (130-400); Red Cell Dist. Width 15.0 % (11.5-14.5)
[2025-01-18 06:55] LABS: ALT (SGPT) 12 U/L (0-35); AST (SGOT) 16 U/L (14-36); Albumin 3.4 g/dl (3.5-5.0); Alkaline Phosphatase 74 U/L (38-126); Blood Urea Nitrogen 9 mg/dl (7-17); Calcium 8.9 mg/dl (8.4-10.2); Carbon Dioxide 28 mmol/L (22-30); Chloride 108 mmol/L (98-107); Estimated Creatinine Clearance 101 ml/min; Glucose 87 mg/dl (70-99); Potassium 3.7 mmol/L (3.5-5.1); Sodium 139 mmol/L (135-145); Total Protein 7.1 g/dl (6.3-8.2); eGFR > 60.00
[2025-01-18 07:10] VITALS: BP 122/55
[2025-01-18 07:29] LABS: Anisocytosis Slight; Normal RBC Morphology No; Ovalocytes Slight; Platelets Checked Yes; Total Cells Counted 100
[2025-01-18 07:30] LABS: Absolute Neutrophils -Man Diff 0.7 10^3/uL (1.4-6.5)
--- NOTE | 2025-01-18 08:15 | W.PN.HOSP.TC ---
Today's Communication/Plan
-
BM biopsy today
Assessment / Plan
Assessment / Plan
74F with history of triple negative breast cancer s/p chemo and surgery, MDS 5 q-on lenalidomide with panytopenia on labs.
Severe thrombocytopenia
Pancytopenia
MDS with New segmented Neutrophils, Lymphocytosis and monocytosis concerning Leukemic transformation
- Hold Eliquis
- For BM Biopsy inpatient today
Transfuse PRBC if Hgb < 7
Transfuse platelet if plt < 10 or any bleeding. 2 units plt given 01/17 for plt 9. Improved to 16
- Oncology consulted, appreciate recommendation. Likely chemo once leukemia has been identified.
MDS 5q-
- Hold Eliquis and Revlimid
Right wrist acute nondisplaced fracture
of the dorsal cortex of the triquetrum
Recent fall with significant facial bruises
- wrist splint
- Ortho consult, recommend nonoperative management with ice elevation and pain medicine
Hypothyroidism
Synthroid
Depression
- c/w citalopram
DVT Px: SCD, Eliquis on hold
Full code
Anticipated Discharge: > 48 hours
Subjective/Interval History
-
Date of Service: January 18, 2025
Patient states she slept well, denies bleeding or new bruising, denies headache or chest pain.
Objective Data
-
Labs:
Laboratory Results
01/18/25
05:55
WBC 2.2 L*
Hgb 8.0 L
Hct 24.8 L
Plt Count 16 L* D
PT 15.9 H
INR 1.22
Sodium 139
Potassium 3.7
Chloride 108 H
Carbon Dioxide 28
BUN 9
Creatinine 0.6
Glucose 87
Calcium 8.9
Total Bilirubin 0.7
AST 16
ALT 12
Alkaline Phosphatase 74
Vital Signs:
Vital Signs
Temp Pulse Resp BP Pulse Ox
99.0 F 77 18 116/56 98
01/17/25 23:24 01/17/25 23:24 01/17/25 23:24 01/17/25 23:24 01/17/25 23:24
I&O
01/17/25 01/18/25 01/19/25
06:59 06:59 06:59
Intake Total 1973
Balance 1973
Review of Systems
-
All other systems: Reviewed and negative
Physical Exam
-
General: No Apparent Distress
HEENT: Moist Mucous Membranes, Anicteric and PERRLA
Respiratory: Clear to Auscultation; Negative Wheezes, Rales or Rhonchi
Cardiac: Regular Rhythm, S1/S2 and Murmur; Negative Rub or Gallop
GI: Soft, Nontender, Nondistended and Normal Bowel Sounds
Musculoskeletal: No Edema and Other (R arm in splint)
Skin: Warm, Dry and Other (bruising on face); Negative Rash or Ulcers
Neuro: Awake and AO x 3
Hematologic / Lymphatic: No Lymphadenopathy
Psych: Calm
Data Reviewed
-
CT Scan: Report Reviewed by me and Discussed with Patient
Labs: Labs Reviewed by me, Discussed with Physician and Discussed with Patient
[2025-01-18] MEDS: CELEXA 10 MG PO ×2 (08:48→20:32)
[2025-01-18] MEDS: UROCIT-K 10 MEQ PO ×2 (08:48→20:32)
[2025-01-18] MEDS: THERAGRAN 1 TABLET PO (08:49)
--- NOTE | 2025-01-18 09:45 | W.PN.ONC2 ---
Today's Communication / Plan
-
Inpatient bone marrow biopsy today
Trend CBC
Impression
Impression
#5q- Myelodysplastic syndrome
#Blasts on peripheral blood smear
Plan
Plan
- 74-year-old female with a past medical history of 5q-myelodysplastic syndrome and remote triple negative breast cancer (treated with adjuvant chemotherapy in 2010) presenting with acute drop in platelet count in a span of a month (from 122 --> 9)
and increasing peripheral blasts (3%).
- Inpatient peripheral smear shows 18% monocytes and 52% lymphocytes.
- There is concern for progression of MDS to leukemia. Patient to get inpatient bone marrow biopsy today.
- Flow cytometry ordered
- s/p 2 units platelets 01/17/25. Plt count today 16. Trend CBC. Further transfusions may increase alloimmunization risk.
- Hgb 8.0. Trend CBC.
- Eliquis on hold.
- Patient follows with Dr. Capone at [facility].
Subjective/Objective
Subjective
Upon evaluation of patient today, patient feels well. No new symptoms.
Vital Signs:
Vital Signs
Temp Pulse Resp BP Pulse Ox
98.7 F 68 16 122/55 95
01/18/25 07:10 01/18/25 07:10 01/18/25 07:10 01/18/25 07:10 01/18/25 07:10
Lab Results:
Laboratory Data
WBC 2.2 10^3/uL (4.8-10.8) L* 01/18/25 05:55
Hgb 8.0 g/dL (12.0-16.0) L 01/18/25 05:55
Plt Count 16 10^3/uL (130-400) L* D 01/18/25 05:55
PT 15.9 Sec (11.4-14.6) H 01/18/25 05:55
INR 1.22 01/18/25 05:55
eGFR > 60.00 01/18/25 05:55
Physical Exam
HEENT: Moist Mucous Membranes
Cardiology: Normal Sinus Rhythm, S1 and S2
Pulmonary: Clear
GI: Soft and Normal Bowel Sounds
Orders
Orders
Orders From Last 24 Hours
01/17/25 12:39
[facility] CONSULT Routine
01/17/25 13:18
Leukemia/Lymphoma Phenotyping [S] Routine
[2025-01-18] MEDS: QUESTRAN 4 GRAM PO ×2 (10:02→21:39)
[2025-01-18] MEDS: ATIVAN 0.5 MG PO (11:31)
[2025-01-18 11:35] VITALS: BP 124/53; BP_SYST 54
[2025-01-18 12:47] VITALS: BP 112/62
--- NOTE | 2025-01-18 13:10 | PTCARENOTE ---
Patient arrived from [facility] after bone marrow biopsy. VS documented. no s/s of distress notes. Dressing to r lower back C/D/I.
[2025-01-18 15:20] VITALS: BP 120/53
--- NOTE | 2025-01-18 16:14 | CM ---
CM following re: discharge planning.
Reviewed pt's chart, met with pt.
Per chart review, BM biopsy today, continue supportive care.
Pt lives with in a rancher house, 1 step to enter, has 2 supportive children. 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 No DME, VN or SNF history.
PT and OT will evaluate the pt to determine a level of care at discharge.
D/C plan: home with anticipated no needs. to transport at discharge.
CM will follow with discharge plan updates as hospitalization progresses
[2025-01-18 19:04] LABS: Hepatitis C Antibody Negative (Negative)
[2025-01-18 23:12] VITALS: BP 129/44
[2025-01-19] MEDS: SYNTHROID 175 MCG PO (05:59)
[2025-01-19 07:46] VITALS: BP 116/47
[2025-01-19] MEDS: THERAGRAN 1 TABLET PO (08:29)
[2025-01-19] MEDS: UROCIT-K 10 MEQ PO ×2 (08:29→20:43)
[2025-01-19] MEDS: CELEXA 10 MG PO ×2 (08:29→20:43)
[2025-01-19 09:27] LABS: Hematocrit 23.2 % (37.0-47.0); Hemoglobin 8.0 g/dL (12.0-16.0); Mean Corp Hgb Conc. 34.5 g/dL (33.0-37.0); Mean Corpuscular Volume 91.7 fL (81.0-99.0); Red Cell Dist. Width 15.1 % (11.5-14.5)
[2025-01-19] MEDS: QUESTRAN 4 GRAM PO (09:34)
[2025-01-19 09:47] LABS: AST (SGOT) 16 U/L (14-36); Albumin 3.4 g/dl (3.5-5.0); Blood Urea Nitrogen 11 mg/dl (7-17); Carbon Dioxide 25 mmol/L (22-30); Chloride 109 mmol/L (98-107); Estimated Creatinine Clearance 101 ml/min; Total Protein 7.2 g/dl (6.3-8.2); eGFR > 60.00
[2025-01-19 09:57] LABS: ALT (SGPT) 13 U/L (0-35); Alkaline Phosphatase 74 U/L (38-126); Calcium 8.9 mg/dl (8.4-10.2); Glucose 101 mg/dl (70-99); Potassium 3.8 mmol/L (3.5-5.1); Sodium 139 mmol/L (135-145)
[2025-01-19 11:16] LABS: Total Cells Counted 100
[2025-01-19 11:17] LABS: Anisocytosis Slight; Normal RBC Morphology No; Platelets Checked Yes
[2025-01-19 11:18] LABS: Ovalocytes Slight
[2025-01-19 11:20] LABS: Absolute Neutrophils -Man Diff 0.6 10^3/uL (1.4-6.5); Platelet Count 13 10^3/uL (130-400)
--- NOTE | 2025-01-19 12:24 | W.PN.HOSP.TC ---
Today's Communication/Plan
-
f/u heme/onc recs- biopsy result pending, 1 unit platelets
ok to d/c after that
Assessment / Plan
Assessment / Plan
74F with history of triple negative breast cancer s/p chemo and surgery, MDS 5 q-on lenalidomide with panytopenia on labs.
Severe thrombocytopenia
Pancytopenia
MDS with New segmented Neutrophils, Lymphocytosis and monocytosis concerning Leukemic transformation
- Hold Eliquis until plt>50,000
- s/p BM Biopsy inpatient path pending
Transfuse PRBC if Hgb < 7
Transfuse platelet if plt < 10 or any bleeding. 2 units plt given 01/17 for plt 9. Improved to 16, then back down to 13
- Oncology consulted, appreciate recommendation. Likely chemo once leukemia has been identified.
D/w Onc ENVELOPE MAKER Andreina, will transfuse another unit of platelets today
MDS 5q-
- Hold Eliquis and Revlimid
Right wrist acute nondisplaced fracture
of the dorsal cortex of the triquetrum
Recent fall with significant facial bruises
- wrist splint
- Ortho consult, recommend nonoperative management with ice elevation and pain medicine
Hypothyroidism
Synthroid
Depression
- c/w citalopram
DVT Px: SCD, Eliquis on hold for plt<50K
Full code
Anticipated Discharge: > 48 hours
Subjective/Interval History
-
Date of Service: January 19, 2025
Pt feeling well denies issues overnight, no bleeding/bruising, no ROMAN/CP/SOB
Objective Data
-
Labs:
Laboratory Results
01/19/25
08:54
WBC 2.5 L
Hgb 8.0 L
Hct 23.2 L
Plt Count 13 L*
Sodium 139
Potassium 3.8
Chloride 109 H
Carbon Dioxide 25
BUN 11
Creatinine 0.6
Glucose 101 H
Calcium 8.9
Total Bilirubin 0.9
AST 16
ALT 13
Alkaline Phosphatase 74
Vital Signs:
Vital Signs
Temp Pulse Resp BP Pulse Ox
98.4 F 53 16 116/47 94
01/19/25 07:46 01/19/25 07:46 01/19/25 07:46 01/19/25 07:46 01/19/25 07:46
I&O
01/18/25 01/19/25 01/20/25
06:59 06:59 06:59
Intake Total 1973 900 / 900
Balance 1973 900 / 900
Review of Systems
-
All other systems: Reviewed and negative
Physical Exam
-
General: No Apparent Distress
HEENT: Moist Mucous Membranes, Anicteric and PERRLA
Respiratory: Clear to Auscultation; Negative Wheezes, Rales or Rhonchi
Cardiac: Regular Rhythm, S1/S2 and Murmur; Negative Rub or Gallop
GI: Soft, Nontender, Nondistended and Normal Bowel Sounds
Musculoskeletal: No Edema and Other (R arm in splint)
Skin: Warm, Dry and Other (bruising on face); Negative Rash or Ulcers
Neuro: Awake and AO x 3
Hematologic / Lymphatic: No Lymphadenopathy
Psych: Calm
Data Reviewed
-
CT Scan: Report Reviewed by me and Discussed with Patient
Labs: Labs Reviewed by me, Discussed with Physician and Discussed with Patient
--- NOTE | 2025-01-19 13:18 | CM ---
CM following re: discharge planning.
Reviewed pt's chart, met with pt.
Pt lives with in a rancher house, 1 step to enter, has 2 supportive children. Pt described herself as independent in all areas [employer]. No DME, VN or SNF history.
PT and OT will evaluate the pt to determine a level of care at discharge.
D/C plan: home with anticipated no needs. to transport at discharge.
CM will follow with discharge plan updates as hospitalization progresses
[2025-01-19 14:57] VITALS: BP 126/46
--- NOTE | 2025-01-19 14:59 | W.PN.ONC2 ---
Today's Communication / Plan
-
Platelet transfusion today
Awaiting BM biopsy results
Follow up outpatient with Dr. Thompson at [facility]
Hematology-oncology team OK with discharge.
Impression
Impression
#5q- Myelodysplastic syndrome
#Blasts on peripheral blood smear
Plan
Plan
- 74-year-old female with a past medical history of 5q-myelodysplastic syndrome and remote triple negative breast cancer (treated with adjuvant chemotherapy in 2010) presenting with acute drop in platelet count in a span of a month (from 122 --> 9)
and increasing peripheral blasts (3%).
- Inpatient peripheral smear shows 18% monocytes and 52% lymphocytes.
- Concern for progression of MDS to leukemia. Inpatient bone marrow biopsy done- awaiting results.
- Flow cytometry ordered.
- s/p 2 units platelets 01/17/25. Plt count today 13, recommend another platelet transfusion today. Patient requesting 2 units before discharge, but informed patient risk of alloimmunization increases with repeated transfusions.
- Hgb 8.0, has been stable over past few days.
- Recommend outpatient follow up with Dr. Capone at [facility].
Subjective/Objective
Subjective
Upon evaluation of patient today, no new complaints. Patient feels well.
Vital Signs:
Vital Signs
Temp Pulse Resp BP Pulse Ox
99.4 F 58 18 126/46 98
01/19/25 14:57 01/19/25 14:57 01/19/25 14:57 01/19/25 14:57 01/19/25 14:57
Lab Results:
Laboratory Data
WBC 2.5 10^3/uL (4.8-10.8) L 01/19/25 08:54
Hgb 8.0 g/dL (12.0-16.0) L 01/19/25 08:54
Plt Count 13 10^3/uL (130-400) L* 01/19/25 08:54
PT 15.9 Sec (11.4-14.6) H 01/18/25 05:55
INR 1.22 01/18/25 05:55
eGFR > 60.00 01/19/25 08:54
Physical Exam
HEENT: Moist Mucous Membranes
Cardiology: Normal Sinus Rhythm, S1 and S2
Pulmonary: Clear
GI: Soft and Normal Bowel Sounds
[2025-01-19 16:01] LABS: Source Blood
[2025-01-19 16:35] VITALS: BP 146/84
[2025-01-19 16:51] VITALS: BP 134/46
[2025-01-19 18:11] VITALS: BP 144/59
--- NOTE | 2025-01-19 18:17 | PTCARENOTE ---
1 unit platelets transfused through L upper arm peripheral IV, unit verified with second RN Fred. CAGLE throughout transfusion, patient stating no complaints at this time.
[2025-01-19] MEDS: QUESTRAN PO (20:45)
[2025-01-19] MEDS: TYLENOL 650 MG PO (22:20)
[2025-01-19 23:06] VITALS: BP 122/51
[2025-01-20] MEDS: SYNTHROID 175 MCG PO (06:06)
[2025-01-20 07:18] LABS: Hematocrit 21.5 % (37.0-47.0); Hemoglobin 7.4 g/dL (12.0-16.0); Mean Corp Hgb Conc. 34.4 g/dL (33.0-37.0); Mean Corpuscular Volume 94.3 fL (81.0-99.0); Platelet Count 10 10^3/uL (130-400); Red Cell Dist. Width 14.8 % (11.5-14.5)
[2025-01-20 07:28] LABS: ALT (SGPT) 15 U/L (0-35); AST (SGOT) 17 U/L (14-36); Albumin 3.2 g/dl (3.5-5.0); Alkaline Phosphatase 69 U/L (38-126); Blood Urea Nitrogen 13 mg/dl (7-17); Calcium 8.8 mg/dl (8.4-10.2); Carbon Dioxide 27 mmol/L (22-30); Chloride 111 mmol/L (98-107); Estimated Creatinine Clearance 101 ml/min; Glucose 99 mg/dl (70-99); Potassium 3.3 mmol/L (3.5-5.1); Sodium 142 mmol/L (135-145); Total Protein 6.6 g/dl (6.3-8.2); eGFR > 60.00
[2025-01-20 07:37] VITALS: BP 131/60
[2025-01-20 07:54] LABS: Anisocytosis Slight; Normal RBC Morphology No; Ovalocytes Slight; Platelets Checked Yes; Total Cells Counted 100
[2025-01-20 07:55] LABS: Absolute Neutrophils -Man Diff 0.6 10^3/uL (1.4-6.5)
--- NOTE | 2025-01-20 08:14 | W.PN.HOSP.TC ---
Today's Communication/Plan
-
fever 100.9F o/n, bcx pending, UA pending
plt down to 10 after transfusion
Assessment / Plan
Assessment / Plan
74F with history of triple negative breast cancer s/p chemo and surgery, MDS 5 q-on lenalidomide with panytopenia on labs.
Neutropenic fever
one fever to 100.9F with resolution
neutropenic
check blood cultures, UA w/reflex cx
have d/w oncology they rec holding off empiric abx, they suspect fever is secondary to last night's platelet transfusion
Severe thrombocytopenia
Pancytopenia
MDS with New segmented Neutrophils, Lymphocytosis and monocytosis concerning Leukemic transformation
- Hold Eliquis until plt>50,000
- s/p BM Biopsy inpatient path pending
Transfuse PRBC if Hgb < 7
Transfuse platelet if plt < 10 or any bleeding. 2 units plt given 01/17 for plt 9. Improved to 16, then back down to 13. Was given 1 unit Plt again, but dropped to 10. Monitor repeat tomorrow
- Oncology consulted, appreciate recommendation. Likely chemo once leukemia has been identified.
outpt f/u
MDS 5q-
- Hold Eliquis and Revlimid
Right wrist acute nondisplaced fracture
of the dorsal cortex of the triquetrum
Recent fall with significant facial bruises
- wrist splint
- Ortho consult, recommend nonoperative management with ice elevation and pain medicine
Hypothyroidism
Synthroid
Depression
- c/w citalopram
DVT Px: SCD, Eliquis on hold for plt<50K
Full code
Anticipated Discharge: > 48 hours
Subjective/Interval History
-
Date of Service: January 20, 2025
Patient denies any new bleeding or bruising, denies sore throat, nausea/vomiting, abdominal pain, diarrhea, runny nose, cough, dysuria. Discussed plan with patient's daughter by phone.
Objective Data
-
Labs:
Laboratory Results
01/20/25
06:17
WBC 2.1 L*
Hgb 7.4 L
Hct 21.5 L
Plt Count 10 L* D
Sodium 142
Potassium 3.3 L
Chloride 111 H
Carbon Dioxide 27
BUN 13
Creatinine 0.6
Glucose 99
Calcium 8.8
Total Bilirubin 0.5
AST 17
ALT 15
Alkaline Phosphatase 69
Vital Signs:
Vital Signs
Temp Pulse Resp BP Pulse Ox
97.9 F 59 18 131/60 97
01/20/25 07:37 01/20/25 07:37 01/20/25 07:37 01/20/25 07:37 01/20/25 07:37
I&O
01/19/25 01/20/25 01/21/25
06:59 06:59 06:59
Intake Total 900 / 900 1482 / 1482
Balance 900 / 900 1482 / 1482
Review of Systems
-
All other systems: Reviewed and negative
Physical Exam
-
General: No Apparent Distress
HEENT: Moist Mucous Membranes, Anicteric and PERRLA
Respiratory: Clear to Auscultation; Negative Wheezes, Rales or Rhonchi
Cardiac: Regular Rhythm, S1/S2 and Murmur; Negative Rub or Gallop
GI: Soft, Nontender, Nondistended and Normal Bowel Sounds
Musculoskeletal: No Edema and Other (R arm in splint)
Skin: Warm, Dry and Other (bruising on face); Negative Rash or Ulcers
Neuro: Awake and AO x 3
Hematologic / Lymphatic: No Lymphadenopathy
Psych: Calm
Data Reviewed
-
CT Scan: Report Reviewed by me and Discussed with Patient
Labs: Labs Reviewed by me, Discussed with Physician and Discussed with Patient
[2025-01-20] MEDS: UROCIT-K 10 MEQ PO ×2 (08:30→20:01)
[2025-01-20] MEDS: THERAGRAN 1 TABLET PO (08:30)
[2025-01-20] MEDS: CELEXA 10 MG PO ×2 (08:30→20:01)
[2025-01-20] MEDS: QUESTRAN PO (11:37)
--- NOTE | 2025-01-20 12:27 | VATNOTE ---
Phlebitic area to left AC improved since yesterday but not resolved, warm compress applied
--- NOTE | 2025-01-20 14:21 | PTCARENOTE ---
Addendum entered by Judy Marie RN 01/20/25 19:30:
1 unit platelets transfused, VSS throughout transfusion - see documentation. Patient states no further episodes of vaginal bleeding since first episode earlier in afternoon. Heme/onc aware of hgb 7.4 on AM labs, stated okay for next lab draw
tomorrow AM.
Original Note:
MD made aware of AM labs and temp of 100.9F overnight, blood cx x2 and urine sample ordered per MD. Patient ringing this afternoon stating to this RN she is having 'vaginal bleeding,' denies any urinary symptoms of burning/pain with urination,
states urine is clear yellow but c/o having blood when wiping. MD and heme/onc made aware by this RN, 1 unit platelets ordered per heme/onc.
[2025-01-20 15:54] VITALS: BP 125/50
[2025-01-20 16:51] VITALS: BP 125/50
[2025-01-20 17:13] VITALS: BP 134/54
[2025-01-20 17:57] VITALS: BP 135/48
[2025-01-20 20:26] LABS: Urine Character Slightly Cloudy (Clear)
[2025-01-20 20:34] LABS: Urine Squamous Cell 0-2 /LPF (Few)
[2025-01-20 20:35] LABS: Urine Red Blood Cell 0-2 /HPF (0-2); Urine White Cell >100 /HPF (0-5)
[2025-01-20] MEDS: QUESTRAN 4 GRAM PO (21:12)
[2025-01-20 22:31] VITALS: BP 136/54
--- NOTE | 2025-01-21 06:13 | W.PN.ONC2 ---
Today's Communication / Plan
-
Await CBC. Anticipate discharge today or tomorrow as vaginal bleeding was minor (and seems to have resolved) and counts won't likely improve until we know final diagnosis and start Tx.
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
Awaiting post PLT transfusion CBC.
Close ACS follow up with Dr. Thompson post discharge.
Impression
Impression
#5q- Myelodysplastic syndrome
#Blasts on peripheral blood smear
Plan
Plan
- 74-year-old female with a past medical history of 5q-myelodysplastic syndrome and remote triple negative breast cancer (treated with adjuvant chemotherapy in 2010) presenting with acute drop in platelet count in a span of a month (from 122 --> 9)
and increasing peripheral blasts (3% on smear w/ 18% monocytes and 52% lymphocytes). F/U peripheral blood flow cytometry 16% blasts. 16% blasts very concerning for AML transformation.
- Awaiting inpatient bone marrow biopsy done pathology results.
- Recommend outpatient follow up with Dr. Capone at [facility].
Subjective/Objective
Chief Complaint
[facility]
Subjective
Vaginal bleeding yesterday (small amount) resolved now. S/P PLT transfusion for PLT = 10K w bleeding.
Vital Signs:
Vital Signs
Temp Pulse Resp BP Pulse Ox
98 F 64 18 136/54 98
01/20/25 22:31 01/20/25 22:31 01/20/25 22:31 01/20/25 22:31 01/20/25 22:31
Lab Results:
Laboratory Data
WBC 2.1 10^3/uL (4.8-10.8) L* 01/20/25 06:17
Hgb 7.4 g/dL (12.0-16.0) L 01/20/25 06:17
Plt Count 10 10^3/uL (130-400) L* D 01/20/25 06:17
PT 15.9 Sec (11.4-14.6) H 01/18/25 05:55
INR 1.22 01/18/25 05:55
eGFR > 60.00 01/20/25 06:17
Physical Exam
Cardiology: S1 and S2
Pulmonary: Clear
GI: Soft
Neuro: Non Focal
Orders
Orders
Orders From Last 24 Hours
01/20/25 14:15
Blood Bank Products [* Blood Bank Products] Routine
[2025-01-21] MEDS: SYNTHROID 175 MCG PO (06:20)
[2025-01-21 07:08] VITALS: BP 127/69
[2025-01-21 07:12] LABS: Hematocrit 21.4 % (37.0-47.0); Hemoglobin 7.4 g/dL (12.0-16.0); Mean Corp Hgb Conc. 34.6 g/dL (33.0-37.0); Mean Corpuscular Volume 93.9 fL (81.0-99.0); Platelet Count 13 10^3/uL (130-400); Red Cell Dist. Width 14.7 % (11.5-14.5)
[2025-01-21 07:30] LABS: AST (SGOT) 15 U/L (14-36); Albumin 3.2 g/dl (3.5-5.0); Blood Urea Nitrogen 9 mg/dl (7-17); Calcium 8.8 mg/dl (8.4-10.2); Carbon Dioxide 27 mmol/L (22-30); Chloride 110 mmol/L (98-107); Estimated Creatinine Clearance 101 ml/min; Glucose 95 mg/dl (70-99); Total Protein 6.8 g/dl (6.3-8.2); eGFR > 60.00
[2025-01-21 07:33] LABS: ALT (SGPT) 13 U/L (0-35); Alkaline Phosphatase 68 U/L (38-126); Potassium 3.5 mmol/L (3.5-5.1); Sodium 141 mmol/L (135-145)
--- NOTE | 2025-01-21 07:52 | W.PN.HOSP.TC ---
Today's Communication/Plan
-
UA positive for UTI, start ceftriaxone, f/u cx and change to oral pending c/s
plt improved to 13
Assessment / Plan
Assessment / Plan
74F with history of triple negative breast cancer s/p chemo and surgery, MDS 5 q-on lenalidomide with panytopenia on labs.
UTI/Neutropenic fever
one fever to 100.9F with resolution
neutropenic
UA positive for UTI, start empiric IV ceftriaxone
f/u blood cultures, Ucx - still pending. ok to change to oral once cx returns
Severe thrombocytopenia
Pancytopenia
MDS with New segmented Neutrophils, Lymphocytosis and monocytosis concerning Leukemic transformation
- Hold Eliquis until plt>50,000
- s/p BM Biopsy inpatient path pending
Transfuse PRBC if Hgb < 7
Transfuse platelet if plt < 10 or any bleeding. 2 units plt given 01/17 for plt 9. Improved to 16, then back down to 13. Was given 1 unit Plt again, but dropped to 10. Repeat today improved to 13.
- Oncology consulted, appreciate recommendation. Likely chemo once leukemia has been identified.
outpt f/u
MDS 5q-
- Hold Eliquis and Revlimid
Right wrist acute nondisplaced fracture
of the dorsal cortex of the triquetrum
Recent fall with significant facial bruises
- wrist splint
- Ortho consult, recommend nonoperative management with ice elevation and pain medicine
outpt f/u
Hypothyroidism
Synthroid
Depression
- c/w citalopram
DVT Px: SCD, Eliquis on hold for plt<50K
Full code
Anticipated Discharge: Within 24 hours
Subjective/Interval History
-
Date of Service: January 21, 2025
Pt had episode of vaginal bleeding yesterday x1, no further bleeding. No other symptoms.
Objective Data
-
Labs:
Laboratory Results
01/21/25
06:32
WBC 2.4 L*
Hgb 7.4 L
Hct 21.4 L
Plt Count 13 L* D
Sodium 141
Potassium 3.5
Chloride 110 H
Carbon Dioxide 27
BUN 9
Creatinine 0.5 L
Glucose 95
Calcium 8.8
Total Bilirubin 0.9
AST 15
ALT 13
Alkaline Phosphatase 68
Vital Signs:
Vital Signs
Temp Pulse Resp BP Pulse Ox
98.3 F 77 18 127/69 96
01/21/25 07:08 01/21/25 07:08 01/21/25 07:08 01/21/25 07:08 01/21/25 07:08
I&O
01/20/25 01/21/25 01/22/25
06:59 06:59 06:59
Intake Total 1482 / 1482 3550 / 3550
Balance 1482 / 1482 3550 / 3550
Review of Systems
-
All other systems: Reviewed and negative
Physical Exam
-
General: No Apparent Distress
HEENT: Moist Mucous Membranes, Anicteric and PERRLA
Respiratory: Clear to Auscultation; Negative Wheezes, Rales or Rhonchi
Cardiac: Regular Rhythm, S1/S2 and Murmur; Negative Rub or Gallop
GI: Soft, Nontender, Nondistended and Normal Bowel Sounds
Musculoskeletal: No Edema and Other (R arm in splint)
Skin: Warm, Dry and Other (bruising on face); Negative Rash or Ulcers
Neuro: Awake and AO x 3
Hematologic / Lymphatic: No Lymphadenopathy
Psych: Calm
Data Reviewed
-
CT Scan: Report Reviewed by me and Discussed with Patient
Labs: Labs Reviewed by me, Discussed with Physician, Discussed with Patient and Discussed with Family
[2025-01-21] MEDS: CELEXA 10 MG PO ×2 (09:19→20:42)
[2025-01-21] MEDS: ROCEPHIN 1000 MG IV (09:19)
[2025-01-21] MEDS: THERAGRAN 1 TABLET PO (09:19)
[2025-01-21] MEDS: UROCIT-K 10 MEQ PO (09:19)
[2025-01-21] MEDS: STERILE WATER FOR INJECTION 10 ML IV (09:20)
[2025-01-21] MEDS: QUESTRAN 4 GRAM PO ×2 (11:07→21:39)
[2025-01-21 12:14] LABS: Platelets Checked YES
[2025-01-21 12:15] LABS: Normal RBC Morphology No
[2025-01-21 12:16] LABS: Hypochromasia 1+
[2025-01-21 12:22] LABS: Absolute Neutrophils -Man Diff 0.5 10^3/uL (1.4-6.5)
[2025-01-21 12:23] LABS: Total Cells Counted 100
--- NOTE | 2025-01-21 14:54 | VATNOTE ---
Yesterday noted two episodes of phlebitis within <24h period. PIV replaced, recommended CHG bath daily. Today, PIV remains without s/s of phlebitis. Other two sites improving, palpable cord remains from AC midway up upper arm, localized erythema
nearly resolved.
[2025-01-21 15:59] VITALS: BP 123/47
[2025-01-21] MEDS: UROCIT-K PO (20:47)
[2025-01-21 23:15] VITALS: BP 131/53
[2025-01-22] VITALS (8 sets, daily range): BP systolic 115–135; BP diastolic 45–82
[2025-01-22] MEDS: SYNTHROID 175 MCG PO (05:15)
[2025-01-22 08:18] LABS: Hematocrit 20.3 % (37.0-47.0); Hemoglobin 6.7 g/dL (12.0-16.0); Mean Corp Hgb Conc. 33.0 g/dL (33.0-37.0); Mean Corpuscular Volume 98.1 fL (81.0-99.0); Platelet Count 8 10^3/uL (130-400); Red Cell Dist. Width 14.9 % (11.5-14.5)
--- NOTE | 2025-01-22 08:22 | W.PN.ONC2 ---
Today's Communication / Plan
-
transfuse Hgb <7, platelets <10, CMV negative products, neutropenic precautions, follow for marrow path
Start Promacta 50mg daily to help reduce need for platelet transfusion
check iron studies, b12, folate, hemolysis panel
Dr. Robles discussed case with transfer center, Dr. Parks and OP provider Dr. Maharaj with plan to continue to monitor counts IP and transfer if unable to meet transfusion needs as OP to consider transfer for IP therapy at [place]
Daughter, Moira, was on speaker phone during visit provided updates and questions answered
Impression
Impression
5q- Myelodysplastic syndrome, lenalidomide on hold since 01/15. peripheral flow 16% blasts and 8% LGL population. BMBx flow with 3.3% blasts
pancytopenia
neutropenic fever 100.9F on 01/19- Bcx NTD, urinc culure pending
Plan
Plan
74-year-old female with a past medical history of 5q-myelodysplastic syndrome and remote triple negative breast cancer (treated with adjuvant chemotherapy in 2010) presenting with acute drop in platelet count in a span of a month 122 --> 9
Awaiting inpatient bone marrow biopsy done pathology results. peripheral flow 16% blasts and 8% LGL population. BMBx flow with 3.3% blasts
start promacta 50mg daily, monitor LFTs while on promacta
DOAC on hold
empiric abx per primary service
Subjective/Objective
Subjective
afebrile, no hypoxia or hypotension
Vital Signs:
Vital Signs
Temp Pulse Resp BP Pulse Ox
98.5 F 59 18 130/80 96
01/22/25 07:27 01/22/25 07:27 01/22/25 07:27 01/22/25 07:27 01/22/25 07:27
Lab Results:
Laboratory Data
WBC 1.8 10^3/uL (4.8-10.8) L* 01/22/25 06:47
Hgb 6.7 g/dL (12.0-16.0) L* 01/22/25 06:47
Plt Count 8 10^3/uL (130-400) L* D 01/22/25 06:47
PT 15.9 Sec (11.4-14.6) H 01/18/25 05:55
INR 1.22 01/18/25 05:55
eGFR > 60.00 01/21/25 06:32
Physical Exam
HEENT: Moist Mucous Membranes; No Jaundice
Pulmonary: Other (unlabored)
GI: Soft
Extremities: Pulses Present
Neuro: Non Focal
[2025-01-22 08:49] LABS: ALT (SGPT) 14 U/L (0-35); AST (SGOT) 16 U/L (14-36); Albumin 3.0 g/dl (3.5-5.0); Alkaline Phosphatase 65 U/L (38-126); Blood Urea Nitrogen 9 mg/dl (7-17); Calcium 8.7 mg/dl (8.4-10.2); Carbon Dioxide 27 mmol/L (22-30); Chloride 110 mmol/L (98-107); Estimated Creatinine Clearance 101 ml/min; Glucose 92 mg/dl (70-99); Potassium 3.5 mmol/L (3.5-5.1); Sodium 139 mmol/L (135-145); Total Protein 6.6 g/dl (6.3-8.2); eGFR > 60.00
[2025-01-22 08:59] LABS: Anisocytosis Slight; Hypochromasia 1+; Normal RBC Morphology No; Ovalocytes Slight; Platelets Checked Yes; Total Cells Counted 100
[2025-01-22 09:00] LABS: Absolute Neutrophils -Man Diff 0.5 10^3/uL (1.4-6.5)
[2025-01-22] MEDS: CELEXA 10 MG PO ×2 (09:08→20:10)
[2025-01-22] MEDS: THERAGRAN 1 TABLET PO (09:08)
[2025-01-22] MEDS: STERILE WATER FOR INJECTION 10 ML IV (09:09)
[2025-01-22] MEDS: ROCEPHIN 1000 MG IV (09:10)
[2025-01-22] MEDS: UROCIT-K PO ×2 (09:49→20:10)
[2025-01-22] MEDS: QUESTRAN 4 GRAM PO ×2 (11:15→22:44)
--- NOTE | 2025-01-22 11:30 | W.PN.HOSP.TC ---
Today's Communication/Plan
-
Monitor vital signs see plan
Transfuse PRBC and platelets today
Repeat labs later today
Continue with ceftriaxone
Follow urine culture
Discussed with daughter over the phone
Assessment / Plan
Assessment / Plan
74F with history of triple negative breast cancer s/p chemo and surgery, MDS 5 q-on lenalidomide with panytopenia on labs.
UTI/Neutropenic fever
one fever to 100.9F with resolution
neutropenic
UA positive for UTI, ucx with ecoli. Pending sensitivities. cw empiric IV ceftriaxone
f/u blood cultures NGTD
Severe thrombocytopenia
Pancytopenia
MDS with New segmented Neutrophils, Lymphocytosis and monocytosis concerning Leukemic transformation
- Hold Eliquis until plt>50,000
- s/p BM Biopsy inpatient path pending
Transfuse PRBC if Hgb < 7; transfuse 1 unit 10/20
Transfuse platelet if plt < 10 or any bleeding. 2 units plt given 10/15 for plt 9. Improved to 16, then back down to 13. Was given 1 unit Plt again, but dropped to 10. plt 8 10/20; 1 unit 10/20
- Oncology consulted, appreciate recommendation. Likely chemo once leukemia has been identified.
outpt f/u
MDS 5q-
- Hold Eliquis and Revlimid
Right wrist acute nondisplaced fracture
of the dorsal cortex of the triquetrum
Recent fall with significant facial bruises
- wrist splint
- Ortho consult, recommend nonoperative management with ice elevation and pain medicine
outpt f/u
Hypothyroidism
Synthroid
Depression
- c/w citalopram
DVT Px: SCD, Eliquis on hold for plt<50K
Full code
General: No Apparent Distress
HEENT: Moist Mucous Membranes, Anicteric and PERRLA
Respiratory: Clear to Auscultation; Negative Wheezes, Rales or Rhonchi
Cardiac: Regular Rhythm, S1/S2 and Murmur; Negative Rub or Gallop
GI: Soft, Nontender, Nondistended and Normal Bowel Sounds
Musculoskeletal: No Edema and Other (R arm in splint)
Skin: Warm, Dry and Other (bruising on face)
Neuro: Awake and AO x 3
Psych: Calm
I spent a total of 53 minutes with the patient or on the floor. More than 50% of this time involved counseling and coordination of care.
Anticipated Discharge: Within 24 hours
Subjective/Interval History
-
Date of Service: January 22, 2025
denies pain
Objective Data
-
Labs:
Laboratory Results
01/22/25
06:47
WBC 1.8 L*
Hgb 6.7 L*
Hct 20.3 L*
Plt Count 8 L* D
Sodium 139
Potassium 3.5
Chloride 110 H
Carbon Dioxide 27
BUN 9
Creatinine 0.5 L
Glucose 92
Calcium 8.7
Total Bilirubin 1.0
AST 16
ALT 14
Alkaline Phosphatase 65
Vital Signs:
Vital Signs
Temp Pulse Resp BP Pulse Ox
98.6 F 67 14 116/48 97
01/22/25 10:28 01/22/25 10:28 01/22/25 10:28 01/22/25 10:28 01/22/25 10:28
I&O
01/21/25 01/22/25 01/23/25
06:59 06:59 06:59
Intake Total 3550 / 3550 2820 / 2820 276 / 276
Balance 3550 / 3550 2820 / 2820 276 / 276
[2025-01-22 12:48] LABS: Reticulocyte Count 0.3 % (0.4-2.8)
[2025-01-22 13:12] LABS: Iron 105 ug/dl (37-170); LDH 228 U/L (120-246)
[2025-01-22 13:22] LABS: Total Iron Binding Capacity 199 ug/dl (265-497)
[2025-01-22 14:05] LABS: Ferritin 324.0 ng/ml (11.1-264.0)
--- NOTE | 2025-01-22 14:17 | CM ---
CM following re: discharge planning.
Reviewed pt's chart, met with pt.
Ortho recommends nonoperative management with ice elevation and pain medicine, outpatient f/u. Oncology folioing, continue supportive care.
Pt lives with in a rancher house, 1 step to enter, has 2 supportive children. Pt described herself as independent in all areas [employer]. No DME, VN or SNF history.
PT and OT will evaluate the pt to determine a level of care at discharge.
D/C plan: home with anticipated no needs. to transport at discharge.
CM will follow with discharge plan updates as hospitalization progresses
[2025-01-22 14:37] LABS: Folate 17.6 ng/ml (2.76-20); Vitamin B12 256 pg/ml (239-931)
[2025-01-22] MEDS: CYANOCOBALAMIN 1000 MCG SC (14:52)
--- NOTE | 2025-01-22 21:23 | PTCARENOTE ---
Patient has an order to transfuse 1 unit of PRBC from this morning, but on the status ( blood bank ) saying two units are ready to be transfused. As per Dr notes, transfuse 1 unit as well. KAYE Mercer made aware. Will give 1unit as ordered. will do
ordered CBC after transfusion done.
[2025-01-23] VITALS (9 sets, daily range): BP systolic 114–156; BP diastolic 44–64; BMI 35.1
[2025-01-23 01:43] LABS: Hematocrit 21.8 % (37.0-47.0); Hemoglobin 7.3 g/dL (12.0-16.0); Mean Corp Hgb Conc. 33.5 g/dL (33.0-37.0); Mean Corpuscular Volume 92.0 fL (81.0-99.0); Red Cell Dist. Width 14.8 % (11.5-14.5)
[2025-01-23 02:28] LABS: Nucleated Red Blood Cells % 0 %
[2025-01-23 02:32] LABS: Platelet Count 15 10^3/uL (130-400)
[2025-01-23] MEDS: SYNTHROID 175 MCG PO (06:07)
[2025-01-23] MEDS: STERILE WATER FOR INJECTION 10 ML IV (08:21)
[2025-01-23] MEDS: ROCEPHIN 1000 MG IV (08:21)
[2025-01-23 08:22] LABS: Hematocrit 23.9 % (37.0-47.0); Hemoglobin 7.7 g/dL (12.0-16.0); Mean Corp Hgb Conc. 32.2 g/dL (33.0-37.0); Mean Corpuscular Volume 97.6 fL (81.0-99.0); Platelet Count 13 10^3/uL (130-400); Red Cell Dist. Width 14.8 % (11.5-14.5)
[2025-01-23] MEDS: CYANOCOBALAMIN 1000 MCG SC (08:22)
[2025-01-23] MEDS: CELEXA 10 MG PO ×2 (08:22→20:44)
[2025-01-23] MEDS: UROCIT-K 10 MEQ PO (08:22)
[2025-01-23] MEDS: THERAGRAN 1 TABLET PO (08:22)
[2025-01-23 08:23] LABS: ALT (SGPT) 22 U/L (0-35); AST (SGOT) 23 U/L (14-36); Albumin 3.3 g/dl (3.5-5.0); Alkaline Phosphatase 68 U/L (38-126); Blood Urea Nitrogen 10 mg/dl (7-17); Calcium 8.7 mg/dl (8.4-10.2); Carbon Dioxide 26 mmol/L (22-30); Chloride 110 mmol/L (98-107); Estimated Creatinine Clearance 101 ml/min; Glucose 98 mg/dl (70-99); Potassium 3.8 mmol/L (3.5-5.1); Sodium 140 mmol/L (135-145); Total Protein 6.8 g/dl (6.3-8.2); eGFR > 60.00
[2025-01-23 08:45] LABS: Anisocytosis 1+; Hypochromasia 1+; Normal RBC Morphology No; Ovalocytes Slight; Platelets Checked Yes; Total Cells Counted 100
[2025-01-23 08:46] LABS: Absolute Neutrophils -Man Diff 0.9 10^3/uL (1.4-6.5)
--- NOTE | 2025-01-23 09:03 | W.PN.ONC ---
Today's Communication / Plan
-
Continue antibiotics for UTI, would transition to PO when able
Will give add'l 1u prbcs today in anticipation of d/c soon
PICC line ordered, will need home VN for line care initially
BM bx pending from 01/18
Continue to hold Revlimid
Telehealth visit upcoming with Dr. Maharaj
Awaiting Promacta from outpatient specialty pharmacy, Rx sent 01/22
Will need outpatient CBC/diff 2x/week and transfusions PRN
discussed plan w/ patient, daughter Moira (on phone) and RN
Impression
Impression
pancytopenia
5q- Myelodysplastic syndrome, lenalidomide on hold since 01/15. peripheral flow 16% blasts and 8% LGL population. BMBx flow with 3.3% blasts
neutropenic fever 100.9F on 01/19 - +UA
h/o breast cancer
Plan
Plan
Continue antibiotics for UTI, would transition to PO when able
Will give add'l 1u prbcs today in anticipation of d/c soon
PICC line ordered, will need home VN for line care initially
BM bx pending from 01/18
Continue to hold Revlimid
Telehealth visit upcoming with Dr. Maharaj
Awaiting Promacta from outpatient specialty pharmacy, Rx sent 01/22
Will need outpatient CBC/diff 2x/week and transfusions PRN
discussed plan w/ patient, daughter Moira (on phone) and RN
Subjective/Objective
Subjective/Objective
feels tired, but no acute complaints
no bleeding
Vital Signs:
Vital Signs
Temp Pulse Resp BP Pulse Ox
98.2 F 57 18 124/52 100
01/23/25 07:23 01/23/25 07:23 01/23/25 07:23 01/23/25 07:23 01/23/25 07:23
Lab Results:
Laboratory Data
WBC 2.4 10^3/uL (4.8-10.8) L* 01/23/25 07:43
Hgb 7.7 g/dL (12.0-16.0) L 01/23/25 07:43
Plt Count 13 10^3/uL (130-400) L* 01/23/25 07:43
PT 15.9 Sec (11.4-14.6) H 01/18/25 05:55
INR 1.22 01/18/25 05:55
eGFR > 60.00 01/23/25 07:43
Orders
Orders
Orders From Last 24 Hours
01/23/25 09:02
* Blood Bank Products Routine
PICC Line As Directed
[2025-01-23] MEDS: QUESTRAN PO (09:11)
--- NOTE | 2025-01-23 10:44 | VATNOTE ---
PICC order received from Oncology MD. At this time, platelet count is 13.0 and minimum platelet count for safe procedure is 20.0 per hospital policy. MD notified and new order placed for platelets and repeat platelet count after infusion. Discussed
with MD appropriateness of placing PICC line for outpatient transfusions in the Outpatient Infusion Department, which can place PIVs in their department. Expressed concern about infection risk in the presence of central lines, particularly in a
pancytopenic patient. states that 'leukemic patients frequently have PICC lines...despite severe neutropenia.' Discussed with dietitian chief who states we can proceed with the PICC line once the platelets meet the minimum level per
hospital policy as neutropenia isn't a contraindicationto PICC placement. Will continue to follow platelet levels and place the PICC line once platelets reach a minimum of 20.0.
--- NOTE | 2025-01-23 11:42 | W.PN.HOSP.TC ---
Today's Communication/Plan
-
Monitor vital signs see plan
1 unit PRBC today
Awaiting urine culture sensitivities
Continue ceftriaxone
Assessment / Plan
Assessment / Plan
74F with history of triple negative breast cancer s/p chemo and surgery, MDS 5 q-on lenalidomide with panytopenia on labs.
UTI/Neutropenic fever
one fever to 100.9F with resolution
neutropenic
UA positive for UTI, ucx with ecoli. Pending sensitivities. cw empiric IV ceftriaxone
f/u blood cultures NGTD
Severe thrombocytopenia
Pancytopenia
MDS with New segmented Neutrophils, Lymphocytosis and monocytosis concerning Leukemic transformation
- Hold Eliquis until plt>50,000
- s/p BM Biopsy inpatient path pending
Transfuse PRBC if Hgb < 7; transfuse 1 unit 10/20
Transfuse platelet if plt < 10 or any bleeding. 2 units plt given 01/17 for plt 9. Improved to 16, then back down to 13. Was given 1 unit Plt again, but dropped to 10. plt 8 /; 1 unit 10/20
- Oncology consulted, appreciate recommendation. Likely chemo once leukemia has been identified.
PICC line to go home with for future infusions per oncology. Oncology office is also arranging biweekly blood draws. 1 unit PRBC 01/23
outpt f/u
MDS 5q-
- Hold Eliquis and Revlimid
Right wrist acute nondisplaced fracture
of the dorsal cortex of the triquetrum
Recent fall with significant facial bruises
- wrist splint
- Ortho consult, recommend nonoperative management with ice elevation and pain medicine
outpt f/u
Hypothyroidism
Synthroid
Depression
- c/w citalopram
DVT Px: SCD, Eliquis on hold for plt<50K
Full code
General: No Apparent Distress
HEENT: Moist Mucous Membranes, Anicteric and PERRLA
Respiratory: Clear to Auscultation; Negative Wheezes, Rales or Rhonchi
Cardiac: Regular Rhythm, S1/S2 and Murmur; Negative Rub or Gallop
GI: Soft, Nontender, Nondistended and Normal Bowel Sounds
Musculoskeletal: No Edema and Other (R arm in splint)
Skin: Warm, Dry and Other (bruising on face)
Neuro: Awake and AO x 3
Psych: Calm
I spent a total of 51 minutes with the patient or on the floor. More than 50% of this time involved counseling and coordination of care.
Anticipated Discharge: Within 24 hours
Subjective/Interval History
-
Date of Service: January 23, 2025
denies pain
Objective Data
-
Labs:
Laboratory Results
01/22/25 01/23/25 01/23/25
21:00 01:13 07:43
WBC Cancelled 3.2 L 2.4 L*
Hgb Cancelled 7.3 L 7.7 L
Hct Cancelled 21.8 L 23.9 L
Plt Count Cancelled 15 L* D 13 L*
Sodium 140
Potassium 3.8
Chloride 110 H
Carbon Dioxide 26
BUN 10
Creatinine 0.5 L
Glucose 98
Calcium 8.7
Total Bilirubin 1.0
AST 23
ALT 22
Alkaline Phosphatase 68
Vital Signs:
Vital Signs
Temp Pulse Resp BP Pulse Ox
98.5 F 63 18 114/44 98
01/23/25 10:50 01/23/25 10:50 01/23/25 10:50 01/23/25 10:50 01/23/25 10:50
I&O
01/22/25 01/23/25 01/24/25
06:59 06:59 06:59
Intake Total 2820 / 2820 2045
Balance 2820 / 2820 2045
--- NOTE | 2025-01-23 12:25 | PTCARENOTE ---
1 unit of PRBC ordered per heme/onc, unit of blood verified with second RN Lilliana Araiza FA IV patency verified with second RN Delmi, consent in chart, vitals taken. Blood not scanning in TAR, blood bank aware, pink sheet used for transfusion.
--- NOTE | 2025-01-23 15:10 | PTOTSP ---
Pt is able to get up and ambulate around her room independently without need for an assistive device. We agreed she does not need PT or assistive device at this time. Agreed to sign off.
--- NOTE | 2025-01-23 15:21 | CM ---
CM following re: discharge planning.
Reviewed pt's chart, met with pt.
Ortho recommends nonoperative management with ice elevation and pain medicine, outpatient f/u. Oncology following, continue supportive care.
Pt lives with in a rancher house, 1 step to enter, has 2 supportive children. Pt described herself as independent in all areas [employer]. No DME, VN or SNF history.
PT and OT will evaluate the pt to determine a level of care at discharge.
D/C plan: home with anticipated no needs. to transport at discharge.
CM will follow with discharge plan updates as hospitalization progresses
--- NOTE | 2025-01-23 16:00 | PTCARENOTE ---
Addendum entered by Judy Marie RN 01/23/25 19:41:
Repeat CBC drawn by IV nurse after platelet transfusion per heme/onc.
Original Note:
1 unit PRBC transfused through L FA IV, vitals stable throughout transfusion - see paper charting. L FA IV assessed by IV nurse, stated okay to use for platelet transfusion. 1 unit platelets verified with second RN Delmi, transfusing through L FA
IV.
[2025-01-23 19:28] LABS: Hematocrit 24.3 % (37.0-47.0); Hemoglobin 8.3 g/dL (12.0-16.0); Mean Corp Hgb Conc. 34.2 g/dL (33.0-37.0); Mean Corpuscular Volume 92.4 fL (81.0-99.0); Platelet Count 22 10^3/uL (130-400); Red Cell Dist. Width 14.6 % (11.5-14.5)
[2025-01-23 19:41] LABS: Anisocytosis 2+; Microcytosis 1+; Normal RBC Morphology No; Platelets Checked Yes
[2025-01-23 19:42] LABS: Hypochromasia 1+; Total Cells Counted 100
[2025-01-23 19:44] LABS: Absolute Neutrophils -Man Diff 0.9 10^3/uL (1.4-6.5)
[2025-01-23] MEDS: UROCIT-K PO ×2 (20:44→20:47)
[2025-01-23] MEDS: QUESTRAN 4 GRAM PO (22:15)
[2025-01-24 04:31] LABS: Parvo B19 Ab, IgM 2.06 IV (<=0.89); Parvo Virus B19 Ab, IgG 0.89 IV (<=0.90)
[2025-01-24 05:13] LABS: Hematocrit 22.4 % (37.0-47.0); Hemoglobin 7.6 g/dL (12.0-16.0); Mean Corp Hgb Conc. 33.9 g/dL (33.0-37.0); Mean Corpuscular Volume 91.8 fL (81.0-99.0); Platelet Count 14 10^3/uL (130-400); Red Cell Dist. Width 14.4 % (11.5-14.5)
[2025-01-24 05:29] LABS: ALT (SGPT) 20 U/L (0-35); AST (SGOT) 19 U/L (14-36); Albumin 3.0 g/dl (3.5-5.0); Alkaline Phosphatase 69 U/L (38-126); Blood Urea Nitrogen 11 mg/dl (7-17); Calcium 8.7 mg/dl (8.4-10.2); Carbon Dioxide 27 mmol/L (22-30); Chloride 110 mmol/L (98-107); Estimated Creatinine Clearance 101 ml/min; Glucose 96 mg/dl (70-99); Potassium 3.5 mmol/L (3.5-5.1); Sodium 140 mmol/L (135-145); Total Protein 6.3 g/dl (6.3-8.2); eGFR > 60.00
[2025-01-24] MEDS: SYNTHROID 175 MCG PO (05:31)
[2025-01-24 05:58] LABS: Nucleated Red Blood Cells % 0 %
--- NOTE | 2025-01-24 06:29 | DOWNTIME ---
There was a [employer] Client Judge'S Clerk Downtime on 01/24/2025 from 0100 to 01/24/2025 at 0215. Downtime documentation of patient's care, including medication administrations, has been reconciled in the electronic record per guidelines. Refer to the
patient's paper chart under the miscellaneous tab to see printed paper medication records and downtime forms.
[2025-01-24 07:45] VITALS: BP 198/68
[2025-01-24] MEDS: CELEXA 10 MG PO (08:58)
[2025-01-24] MEDS: THERAGRAN 1 TABLET PO (08:58)
[2025-01-24] MEDS: CYANOCOBALAMIN 1000 MCG SC (08:58)
[2025-01-24] MEDS: UROCIT-K PO (08:58)
[2025-01-24] MEDS: STERILE WATER FOR INJECTION IV (09:24)
[2025-01-24] MEDS: ROCEPHIN IV (09:24)
[2025-01-24] MEDS: OMNICEF 300 MG PO (09:41)
[2025-01-24 09:43] VITALS: BP 158/52
[2025-01-24] MEDS: QUESTRAN 4 GRAM PO (11:12)
--- NOTE | 2025-01-24 12:29 | W.PN.HOSP.TC ---
Addendum entered and electronically signed by Duane Smith MD 01/24/25 15:39:
Patient given orthopedics Dr. Lema information to follow-up over the phone. She reports understanding as she wrote all the information down.
Original Note:
Today's Communication/Plan
-
monitor vitals
see plan
has PICC line
Discussed with hematology, okay for discharge today
Patient is following up for labs tomorrow, likely will need outpatient infusions
P.o. antibiotic to complete course
time of discharge 37 minutes
Assessment / Plan
Assessment / Plan
74F with history of triple negative breast cancer s/p chemo and surgery, MDS 5 q-on lenalidomide with panytopenia on labs.
UTI/Neutropenic fever
one fever to 100.9F with resolution
neutropenic
UA positive for UTI, ucx with ecoli. Sensitive to p.o. cephalosporin. Transition to p.o. cefdinir to complete the course
f/u blood cultures NGTD
Severe thrombocytopenia
Pancytopenia
MDS with New segmented Neutrophils, Lymphocytosis and monocytosis concerning Leukemic transformation
- Hold Eliquis until plt>50,000
- s/p BM Biopsy inpatient path pending
Transfuse PRBC if Hgb < 7; transfuse 1 unit /20
Transfuse platelet if plt < 10 or any bleeding. 2 units plt given 01/17 for plt 9. Improved to 16, then back down to 13. Was given 1 unit Plt again, but dropped to 10. plt 8 01/22; 1 unit 10/20
- Oncology consulted, appreciate recommendation. Likely chemo once leukemia has been identified.
PICC line to go home with for future infusions per oncology. Oncology office is also arranging biweekly blood draws. 1 unit PRBC 01/23 and 1 unit plt. s/p PICC placed 01/23 for infusions outpatient
outpt f/u
MDS 5q-
- Hold Eliquis and Revlimid on dc
Right wrist acute nondisplaced fracture
of the dorsal cortex of the triquetrum
Recent fall with significant facial bruises
- wrist splint
- Ortho consult, recommend nonoperative management with ice elevation and pain medicine
outpt f/u
Hypothyroidism
Synthroid
Depression
- c/w citalopram
DVT Px: SCD, Eliquis on hold for plt<50K
Full code
General: No Apparent Distress
HEENT: Moist Mucous Membranes, Anicteric and PERRLA
Respiratory: Clear to Auscultation; Negative Wheezes, Rales or Rhonchi
Cardiac: Regular Rhythm, S1/S2 and Murmur; Negative Rub or Gallop
GI: Soft, Nontender, Nondistended and Normal Bowel Sounds
Musculoskeletal: No Edema and Other (R arm in splint)
Skin: Warm, Dry and Other (bruising on face)
Neuro: Awake and AO x 3
Psych: Calm
Anticipated Discharge: Today
Subjective/Interval History
-
Date of Service: January 24, 2025
denies pain
Objective Data
-
Labs:
Laboratory Results
01/24/25
04:46
WBC 2.5 L
Hgb 7.6 L
Hct 22.4 L
Plt Count 14 L* D
Sodium 140
Potassium 3.5
Chloride 110 H
Carbon Dioxide 27
BUN 11
Creatinine 0.6
Glucose 96
Calcium 8.7
Total Bilirubin 1.0
AST 19
ALT 20
Alkaline Phosphatase 69
Vital Signs:
Vital Signs
Temp Pulse Resp BP Pulse Ox
98.0 F 58 18 158/52 97
01/24/25 07:45 01/24/25 07:45 01/24/25 07:45 01/24/25 09:43 01/24/25 07:45
I&O
01/23/25 01/24/25 01/25/25
06:59 06:59 06:59
Intake Total 2045 160 / 160
Balance 2045 1606 / 1606
--- NOTE | 2025-01-24 12:40 | W.DCSUMMARY ---
Discharge Summary
Discharge Data
Date of Admission: 01/16/25
Date of Discharge: 01/24/25
-
Pending Results: No
Hospital Course
74-year-old female with past medical history of breast cancer status post chemo and surgery, MDS, hypothyroidism, depression came to the hospital with pancytopenia on outpatient labs. Patient also had urinary tract infection with urine culture grew
E. coli. Initially she was on IV antibiotics later transitioned to p.o. antibiotics to complete the course. For her severe pancytopenia she required multiple time blood transfusion along with platelet transfusion. She was seen by hematology
throughout hospitalization. She also had bone marrow biopsy for which final results were still pending prior to discharge. With the hematology recommendation PICC line was inserted prior to discharge for patient future infusions. Hematology also
has set up patient for her blood draws outpatient for future transfusions. She also had right wrist acute nondisplaced fracture for which orthopedics recommended her to follow-up with them outpatient and to continue wrist splint. On discharge
Eliquis and Revlimid was held. Once her symptoms continue to improve, she was then discharged home with instructions to follow-up with all her physicians outpatient.
Discharge Plan
-
Patient Disposition: Home with Home Care
Discharge Diagnosis/Procedures: UTI
Neutropenic fever
Severe pancytopenia
Right wrist acute nondisplaced fracture
Diet: As tolerated
Activity: As tolerated
Bathing Restrictions: None
Blood Work: CBC with hematology
Activity Restrictions/Additional Instructions:
Follow-up bone marrow biopsy closely with hematology
Referrals:
Kem Lopez DO [Family Provider, Family Practice] - in less than 1 week
Kaycee Armstrong MD [Active, Oncology]
Maxwell Lema MD [Active, Orthopedics] - in one to two weeks
Prescriptions:
New
cyanocobalamin (vitamin B-12) 1,000 mcg capsule
1,000 mcg PO DAILY Qty: 30 0RF
cefdinir 300 mg Capsule
300 mg PO Q12 Qty: 3 0RF
Continued
citalopram 20 MG tablet
20 mg PO DAILY
potassium citrate 10 MEQ tablet extended release
10 meq PO BID
multivitamin with folic acid [Tab-A-Hever] 1 TABLET tablet
1 tab PO DAILY
levothyroxine [Synthroid] 175 mcg Tablet
175 mcg PO DAILY
acetaminophen [Tylenol Extra Strength] 500 mg Tablet
1,000 mg PO Q6HPRN PRN (Reason: mild pain)
cholestyramine 4 gram Powder
4 g PO BID
Held
Eliquis 5 mg Tablet
2.5 mg PO BID
Hold Instructions: Restart when okay with hematology
lenalidomide [Revlimid] 10 mg Capsule
10 mg PO QPM
Hold Instructions: Restart when okay with hematology
Discharge Orders:
Discharge Patient (As Directed); Ordered 01/24/25
Ordered By: Duane Smith
Discharge Date and Time
Discharge Date/Time: 01/24/25 15:07
Print Language: TONGAN
--- NOTE | 2025-01-24 13:20 | CM ---
Addendum entered by Tyrone Cabrera 01/24/25 14:16:
Per [facility] liaison, they are not able to accept the pt for PICC line management.
A referral made to [facility] infusion, spoke to quality audit representative sole and she confirmed they accepted the pt.
Please fax discharge instructions to [facility] [phone]
D/C plan: home with [facility] to manage PICC and family support. to transport.
Addendum entered by Tyrone Cabrera 01/24/25 13:41:
Per pt will need VN RN or managing PICC. [facility] cannot manage the PICC. Pt is aware and she is requested [facility]. A referral to [facility] made.
Please fax discharge instruction s to [facility] at [phone]
D/C plan: home with [facility] to manage PICC and family support. to transport.
Original Note:
CM following re: discharge planning.
Reviewed pt's chart, met with pt.
Discharge order noted. Pt is aware, expressed her agreement with discharge and she stated her will transport home.
IMM reviewed, placed on chart, pt has a copy.
PT and OT evaluations noted - pt has no skilled PT/OT needs.
D/C plan: home no needs. to transport.
[2025-01-24 14:09] VITALS: BP 157/55
--- NOTE | 2025-01-24 15:13 | PTCARENOTE ---
Patient discharged home, transported by spouse. R PICC in place for DC. Vitals taken by tech stable. Patient dressed and gathered belongings independently in room. Discharge instructions and medications reviewed with patient by this RN, patient
verbalized understanding. Patient taken down to spouse's car at [facility] via staff escort and wheelchair.
== END 2025-01-24 15:07 | disposition home or self-care (01) | DRG 835 ==
LOC: 2 NORTH 20:39
PROVIDERS: Emergency Medicine; Internal Medicine; Internal Medicine Hematology & Oncology; Nurse Practitioner Acute Care; Nurse Practitioner Family; Radiology Diagnostic Radiology; Radiology Vascular & Interventional Radiology; ADMITTING PHYSICIAN Internal Medicine; ATTENDING PHYSICIAN Internal Medicine; CONSULT PHYSICIAN Orthopaedic Surgery Hand Surgery; EMERGENCY PHYSICIAN Emergency Medicine; FAMILY PHYSICIAN Family Medicine; OTHER PHYSICIAN Internal Medicine Hematology & Oncology
PROC: 30233R1 Transfusion of Nonautologous Platelets into Peripheral Vein, Percutaneous Approach (ICD-10-PCS; 2025-01-16)
PROC: 30233N1 Transfusion of Nonautologous Red Blood Cells into Peripheral Vein, Percutaneous Approach (ICD-10-PCS; 2025-01-16)
PROC: 07DR3ZX Extraction of Iliac Bone Marrow, Percutaneous Approach, Diagnostic (ICD-10-PCS; 2025-01-18)
PROC: 079T3ZX Drainage of Bone Marrow, Percutaneous Approach, Diagnostic (ICD-10-PCS; 2025-01-18)
DX: C92.00 Acute myeloblastic leukemia, not having achieved remission (principal); D61.818 Other pancytopenia; S42.402A Unspecified fracture of lower end of left humerus, initial encounter for closed fracture; N39.0 Urinary tract infection, site not specified; G99.2 Myelopathy in diseases classified elsewhere; D70.9 Neutropenia, unspecified; R50.81 Fever presenting with conditions classified elsewhere; B96.20 Unspecified Escherichia coli [E. coli] as the cause of diseases classified elsewhere; E03.9 Hypothyroidism, unspecified; F32.A Depression, unspecified; Z85.3 Personal history of malignant neoplasm of breast; Z92.21 Personal history of antineoplastic chemotherapy; S00.83XA Contusion of other part of head, initial encounter; Z87.891 Personal history of nicotine dependence; Z80.3 Family history of malignant neoplasm of breast; Z82.49 Family history of ischemic heart disease and other diseases of the circulatory system; Z79.01 Long term (current) use of anticoagulants; Z79.890 Hormone replacement therapy; M48.02 Spinal stenosis, cervical region; G93.89 Other specified disorders of brain; I65.22 Occlusion and stenosis of left carotid artery; I10 Essential (primary) hypertension; S62.113A Displaced fracture of triquetrum [cuneiform] bone, unspecified wrist, initial encounter for closed fracture; W01.0XXA Fall on same level from slipping, tripping and stumbling without subsequent striking against object, initial encounter; Z79.899 Other long term (current) drug therapy
CPT/HCPCS: 29125; 38222; 70450; 70486; 71045; 72125; 73110; 77012; 80048; 80053; 81003; 81015; 82248; 82607; 82728; 82746; 83010; 83540; 83550; 83615; 85025; 85027; 85045; 85610; 86747; 86803; 86850; 86900; 86901; 86902; 86920; 86922; 87040; 87077; 87086; 87186; 88305; 88311; 88312; 88313; 94660; 97162; 99285; P9016; P9051; P9073

== ENCOUNTER → 2025-01-25 12:41 | Outpatient (REF) | payer MEDICARE, OTHER, SELFPAY ==
[2025-01-25 16:13] LABS: Hematocrit 23.5 % (37.0-47.0); Hemoglobin 7.7 g/dL (12.0-16.0); Mean Corp Hgb Conc. 32.8 g/dL (33.0-37.0); Mean Corpuscular Volume 95.1 fL (81.0-99.0); Platelet Count 6 10^3/uL (130-400); Red Cell Dist. Width 14.5 % (11.5-14.5)
[2025-01-25 19:52] LABS: Absolute Neutrophils -Man Diff 0.7 10^3/uL (1.4-6.5)
[2025-01-25 19:53] LABS: Normal RBC Morphology Yes; Platelets Checked Yes; Total Cells Counted 100
== END ==
LOC: OIDL 12:41
PROVIDERS: ATTENDING PHYSICIAN Internal Medicine Hematology & Oncology; FAMILY PHYSICIAN Family Medicine
DX: R79.9 Abnormal finding of blood chemistry, unspecified (principal)
CPT/HCPCS: 85025

== ENCOUNTER 2025-02-01 13:20 | Outpatient (RCR) | payer MEDICARE, OTHER, SELFPAY ==
[2025-01-26 09:02] VITALS: BP 160/64
[2025-01-26 09:19] VITALS: BP 132/65
[2025-01-26 10:11] VITALS: BP 146/59
[2025-01-26] MEDS: TYLENOL 650 MG PO (10:22)
--- NOTE | 2025-01-26 11:28 | PTCARENOTE ---
Pt in today for platelets. She had a brand new PICC line placed in the hospital and was told upon discharge that a service would come in to take care of the dressing. No one has come. Chandrika our marriage and family social worker has contacted an agency to come and take
care of PICC line flushes and dressing. Educated patient on how to do flushes over the weekend in case the agency cancels or does not show up. Pt is scheduled to come back on Wednesday for MD visit.
[2025-01-29 10:19] LABS: Absolute Neutrophils -Man Diff 0.8 10^3/uL (1.4-6.5); Hematocrit 21.1 % (37.0-47.0); Hemoglobin 7.0 g/dL (12.0-16.0); Mean Corp Hgb Conc. 33.2 g/dL (33.0-37.0); Mean Corpuscular Volume 94.6 fL (81.0-99.0); Platelet Count 5 10^3/uL (130-400); Red Cell Dist. Width 14.3 % (11.5-14.5)
[2025-01-29 10:20] LABS: Normal RBC Morphology No; Platelets Checked Yes
[2025-01-29 10:21] LABS: Hypochromasia 1+; Macrocytosis 1+
[2025-01-29 10:22] LABS: Ovalocytes 1+; Total Cells Counted 100
[2025-01-30] VITALS (7 sets, daily range): BP systolic 143–175; BP diastolic 63–82
[2025-01-30] MEDS: TYLENOL 650 MG PO (08:35)
[2025-02-01 13:20] VITALS: BP 195/95
[2025-02-01 15:17] LABS: Hematocrit 18.5 % (37.0-47.0); Hemoglobin 6.5 g/dL (12.0-16.0); Mean Corp Hgb Conc. 35.1 g/dL (33.0-37.0); Mean Corpuscular Volume 90.7 fL (81.0-99.0); Platelet Count 3 10^3/uL (130-400); Red Cell Dist. Width 14.1 % (11.5-14.5)
[2025-02-01 15:18] LABS: Absolute Neutrophils -Man Diff 2.2 10^3/uL (1.4-6.5); Platelets Checked Yes
[2025-02-01 15:19] LABS: Normal RBC Morphology No
[2025-02-01 15:20] LABS: Total Cells Counted 100
[2025-02-01 15:21] LABS: Hypochromasia 1+
[2025-02-01 15:23] LABS: Ovalocytes 1+
== END 2025-02-02 23:59 | disposition home or self-care (01) ==
LOC: OID 13:20
PROVIDERS: Internal Medicine Hematology & Oncology; ATTENDING PHYSICIAN Nurse Practitioner Adult Health
DX: C50.419 Malignant neoplasm of upper-outer quadrant of unspecified female breast (principal); D64.9 Anemia, unspecified; R79.9 Abnormal finding of blood chemistry, unspecified; R53.83 Other fatigue; D53.9 Nutritional anemia, unspecified; E03.9 Hypothyroidism, unspecified; D46.C Myelodysplastic syndrome with isolated del(5q) chromosomal abnormality; Z17.1 Estrogen receptor negative status [ER-]
CPT/HCPCS: 36430; 85025; 86850; 86860; 86870; 86880; 86900; 86901; 86920; 86922; 96523; P9016; P9073